=== PATIENT | female | born 1935 | race Caucasian/White ===

== ENCOUNTER 2018-10-09 12:36 | Inpatient (IN) | payer MEDICARE, OTHER ==
[~2018-10-09] VITALS: Ht 152.4 cm; Wt 56.7 kg
[~2018-10-09 12:36] MED LIST: ACET325 PO; ALBU90OI6 INH; AMOCLA875 PO; ASPI325 PO; ASPI81CH PO; AZIT250 PO; BUDE6HFA INH; BUDE6HFA PO; BUPR150ER PO; CILO50 PO; CILOSTAZOL PO; CLOP75 PO; Calcium 600-D1 EACH PO; GUAI600T33 PO; LEVSOD75 PO; LEVSOD88 PO; LISI10 PO; MULVITMIND PO; NAPR250 PO; NIAC500 PO; OMEPRAZOLE MAGN20 MG PO; PRED10 PO; PRESSER VISION; SERT100 PO; SIMV40 PO; TIOT18 IH; TUDORZA PRESS400 MCG PO
[2018-10-09 13:08] LABS: BASOPHILS ABSOLUTE AUTO 0.09 K/mm3 (0.00-0.23); BASOPHILS PERCENT AUTO 1 % (0-2); EOSINOPHILS PERCENT AUTO 3 % (0-6); Hematocrit 45.4 % (33.0-51.0); Hemoglobin 14.3 g/dL (11.5-16.0); IMMATURE GRAN ABSOLUTE AUTO 0.11 K/mm3 (0.00-0.10); IMMATURE GRAN PERCENT AUTO 2 % (0-1); LYMPHOCYTES ABSOLUTE AUTO 2.26 K/mm3 (0.84-5.20); LYMPHOCYTES PERCENT AUTO 30 % (21-46); MONOCYTES ABSOLUTE AUTO 0.56 K/mm3 (0.16-1.47); MONOCYTES PERCENT AUTO 7 % (4-13); Mean Corpuscular HGB 29.4 pg (26.0-34.0); Mean Corpuscular HGB Conc 31.5 g/dL (31.5-36.5); Mean Corpuscular Volume 93 fL (80-100); Mean Platelet Volume 10.3 fL (9.1-12.4); NEUTROPHILS ABSOLUTE AUTO 4.33 K/mm3 (1.96-9.15); NEUTROPHILS PERCENT AUTO 57 % (41-73); Platelet Count 162 K/mm3 (150-400); RDW Coefficient Variation 13.6 % (11.7-14.2); RDW Standard Deviation 46.7 fL (35.1-46.3); Red Blood Cell Count 4.86 M/mm3 (3.80-5.20); White Blood Cell Count 7.55 K/mm3 (4.00-11.30)
[2018-10-09 13:32] LABS: Alanine Aminotransfer (ALT/SGP 41 U/L (12-78); Albumin, Blood 4.3 g/dL (3.4-5.0); Albumin/Globulin Ratio 1.4 (0.8-1.8); Alk Phos 77 U/L (50-136); Anion Gap 10 mmol/L (6-16); Aspartate Aminotrans (AST/SGOT 44 U/L (12-37); Bilirubin, Total 0.6 mg/dL (0.1-1.0); Blood Urea Nitrogen 13 mg/dL (8-24); Bun/Creatinine Ratio 18.1 (12.0-20.0); CO2, Blood 26 mmol/L (21-32); Chloride, Blood 107 mmol/L (98-108); Creatinine, Blood 0.72 mg/dL (0.40-1.00); Glomerular Filtration Rate >60 (60-); Glucose, Blood 108 mg/dL (70-99); Potassium, Blood 3.7 mmol/L (3.5-5.5); Sodium, Blood 143 mmol/L (136-145); Total Protein, Blood 7.3 g/dL (6.4-8.2)
[2018-10-09] MEDS ORDERED: ATOR40TA PO (13:44)
[2018-10-09 14:34] LABS: Source, Urine Clean Catch
[2018-10-09 14:48] LABS: Appearance, Urine Clear (Clear); Bilirubin, Urine Neg (Neg); Blood, Urine 1+ (Neg); Color, Urine Yellow (P-Yellow); Glucose Qualitative, Urine Neg (Neg); Ketones, Urine Neg (Neg); Leukocyte Esterase, Urine Neg (Neg); Nitrite, Urine Neg (Neg); Protein, Urine Neg (Neg); Urobilinogen, Urine NORM (Normal)
[2018-10-09 15:01] LABS: Squamous Epithelial Cells Not Seen /hpf (Few); Transitional Epithelial Cells Rare /hpf (0-Rare); White Blood Cells, Urine 0-2 /hpf (0-5)
[2018-10-09 15:02] LABS: Bacteria Few /hpf
--- NOTE | 2018-10-09 16:12 | NUR ---
INTO SDS VIA [employer]. PT REPORTS ABDOMINAL PAIN 02/03. HISTORY AND ALLERGIES REVIEWED. NPO STATUS CONFIRMED. LUNGS TIGHT T/O WITH SCATTERED EXPIRATORY WHEEZES. SATS 92% ON RA. PT REPORTS HISTORY OF COPD AND 02 AT [facility]. DR. PARKER MADE AWARE OF ADVENTICIOUS LUNG SOUNDS-DUO NEB GIVEN.
--- NOTE | 2018-10-09 19:00 | NUR ---
PT TRANSFERRED TO ROOM ON BED, A/O BUT DROWSY. WITH PT. POST OP VS COMMENCED.
--- NOTE | 2018-10-09 19:00 | NUR ---
pt arrived to room 230 from pacu s/p small bowel resection oriented to room layout
[2018-10-10 04:34] LABS: BASOPHILS ABSOLUTE AUTO 0.02 K/mm3 (0.00-0.23); BASOPHILS PERCENT AUTO 0 % (0-2); EOSINOPHILS PERCENT AUTO 0 % (0-6); Hematocrit 40.3 % (33.0-51.0); Hemoglobin 12.6 g/dL (11.5-16.0); IMMATURE GRAN ABSOLUTE AUTO 0.04 K/mm3 (0.00-0.10); IMMATURE GRAN PERCENT AUTO 0 % (0-1); LYMPHOCYTES ABSOLUTE AUTO 0.41 K/mm3 (0.84-5.20); LYMPHOCYTES PERCENT AUTO 4 % (21-46); MONOCYTES ABSOLUTE AUTO 0.92 K/mm3 (0.16-1.47); MONOCYTES PERCENT AUTO 9 % (4-13); Mean Corpuscular HGB 29.6 pg (26.0-34.0); Mean Corpuscular HGB Conc 31.3 g/dL (31.5-36.5); Mean Corpuscular Volume 95 fL (80-100); Mean Platelet Volume 10.6 fL (9.1-12.4); NEUTROPHILS ABSOLUTE AUTO 9.18 K/mm3 (1.96-9.15); NEUTROPHILS PERCENT AUTO 87 % (41-73); Platelet Count 122 K/mm3 (150-400); RDW Coefficient Variation 13.8 % (11.7-14.2); RDW Standard Deviation 48.2 fL (35.1-46.3); Red Blood Cell Count 4.25 M/mm3 (3.80-5.20); White Blood Cell Count 10.57 K/mm3 (4.00-11.30)
--- NOTE | 2018-10-10 04:38 | NUR ---
shift summary: vss, no acute changes, pt remained a/o x 4, pleasant/cooperative. bowel tones hypoactive, no flatus. pt requested analgesia x 2, provided per mar with control of pain from 03/06 down to 3-11/04. pt's stayed in room with pt. pt tolerated minimal ice chips per orders with no n/v. lai catheter remained patent and draining clear yellow urine. midline incision c/d/i with no shadowing on surgical dressing. pt appears to be sleeping upon nurse rounding periodically t/o shift.
[2018-10-10 04:52] LABS: Alanine Aminotransfer (ALT/SGP 34 U/L (12-78); Albumin, Blood 3.2 g/dL (3.4-5.0); Albumin/Globulin Ratio 1.3 (0.8-1.8); Alk Phos 55 U/L (50-136); Anion Gap 6 mmol/L (6-16); Aspartate Aminotrans (AST/SGOT 49 U/L (12-37); Bilirubin, Total 0.4 mg/dL (0.1-1.0); Blood Urea Nitrogen 19 mg/dL (8-24); Bun/Creatinine Ratio 21.4 (12.0-20.0); CO2, Blood 29 mmol/L (21-32); Calcium, Blood 8.5 mg/dL (8.5-10.1); Chloride, Blood 106 mmol/L (98-108); Creatinine, Blood 0.89 mg/dL (0.40-1.00); Globulin, Blood 2.4 g/dL (2.2-4.0); Glomerular Filtration Rate >60 (60-); Glucose, Blood 115 mg/dL (70-99); Magnesium, Blood 1.8 mg/dL (1.6-2.4); Potassium, Blood 4.5 mmol/L (3.5-5.5); Sodium, Blood 141 mmol/L (136-145); Total Protein, Blood 5.6 g/dL (6.4-8.2)
--- NOTE | 2018-10-10 15:46 | NUR ---
SHIFT SUMMARY PT POD 1 SMALL BOWEL RESECTION. MIDLINE INCISION CLEAN AND DRY. PAIN MANAGED WITH 50 FENTANYL Q2-3, TOLERATING WELL. UP TO CHAIR AND BATHROOM SBA. TOLERATING ICE CHIPS. LASIX 40MG GIVEN THIS AM, VOIDING WELL-DECREASED WORK OF BREATHING AND FEW CRACKLES IN BASES SINCE ADMINISTRATION OF LASIX.
--- NOTE | 2018-10-10 16:12 | NUR ---
THIS RN RECENTLY GIVEN REPORT AND IS ASSUMING CARE OF PT.
--- NOTE | 2018-10-10 19:34 | NUR ---
IVF CLARIFIED WITH DR IRENE RECENTLY, DISCUSSED WITH VANESSA OSBORNE.
--- NOTE | 2018-10-11 07:20 | NUR ---
SUMMARY: NO ACUTE CHANGE THIS SHIFT. PT HAS SLEPT WELL, UP TO VOID AT BEDSIDE COMMODE, SBA. SURGICAL SITE WNL, PT HAS DENIED NEED FOR PAIN MEDS. PT CONTINUES TO BE SOB ON EXERTION, LUNG SOUNDS HAVE BEEN DIMINISHED OR WHEEZY TONIGHT, PT GIVEN BREATHING TX X1. 2L O2. NO SOB AT REST. VSS, A/O. PT AT BEDSIDE.
--- NOTE | 2018-10-11 18:27 | NUR ---
SHIFT SUMMARY PT POD 2 SMALL BOWEL RESECTION. MIDLINE INCISION C/D/I. HAS DENIED PAIN, MEDICATED ONCE WITH TORADOL FOR HEADACHE. AMBULATED IN HALLWAY X'S 3, DENIES PASSING FLATUS. DENIES N/V. IVF RUNNING PER EMAR.
[2018-10-12 04:45] LABS: BASOPHILS ABSOLUTE AUTO 0.03 K/mm3 (0.00-0.23); BASOPHILS PERCENT AUTO 1 % (0-2); EOSINOPHILS ABSOLUTE AUTO 0.08 K/mm3 (0.00-0.68); EOSINOPHILS PERCENT AUTO 2 % (0-6); Hematocrit 29.6 % (33.0-51.0); Hemoglobin 8.9 g/dL (11.5-16.0); IMMATURE GRAN ABSOLUTE AUTO 0.02 K/mm3 (0.00-0.10); IMMATURE GRAN PERCENT AUTO 0 % (0-1); LYMPHOCYTES ABSOLUTE AUTO 0.62 K/mm3 (0.84-5.20); LYMPHOCYTES PERCENT AUTO 13 % (21-46); MONOCYTES ABSOLUTE AUTO 0.36 K/mm3 (0.16-1.47); MONOCYTES PERCENT AUTO 8 % (4-13); Mean Corpuscular HGB 28.8 pg (26.0-34.0); Mean Corpuscular HGB Conc 30.1 g/dL (31.5-36.5); Mean Corpuscular Volume 96 fL (80-100); Mean Platelet Volume 10.4 fL (9.1-12.4); NEUTROPHILS ABSOLUTE AUTO 3.68 K/mm3 (1.96-9.15); NEUTROPHILS PERCENT AUTO 77 % (41-73); Platelet Count 95 K/mm3 (150-400); RDW Coefficient Variation 13.9 % (11.7-14.2); Red Blood Cell Count 3.09 M/mm3 (3.80-5.20); White Blood Cell Count 4.79 K/mm3 (4.00-11.30)
[2018-10-12 05:07] LABS: Magnesium, Blood 2.1 mg/dL (1.6-2.4)
[2018-10-12 05:08] LABS: Alanine Aminotransfer (ALT/SGP 57 U/L (12-78); Albumin, Blood 2.8 g/dL (3.4-5.0); Alk Phos 43 U/L (50-136); Anion Gap 7 mmol/L (6-16); Aspartate Aminotrans (AST/SGOT 58 U/L (12-37); Bilirubin, Total 0.7 mg/dL (0.1-1.0); Blood Urea Nitrogen 27 mg/dL (8-24); Bun/Creatinine Ratio 34.8 (12.0-20.0); CO2, Blood 27 mmol/L (21-32); Calcium, Blood 8.1 mg/dL (8.5-10.1); Chloride, Blood 111 mmol/L (98-108); Creatinine, Blood 0.78 mg/dL (0.40-1.00); Globulin, Blood 2.7 g/dL (2.2-4.0); Glomerular Filtration Rate >60 (60-); Glucose, Blood 78 mg/dL (70-99); Phosphorus, Blood 2.4 mg/dL (2.5-4.9); Potassium, Blood 3.8 mmol/L (3.5-5.5); Sodium, Blood 145 mmol/L (136-145); Total Protein, Blood 5.5 g/dL (6.4-8.2)
--- NOTE | 2018-10-12 07:15 | NUR ---
REPORT FROM KEON Hernandez RN. ASSUMED PT CARE.
--- NOTE | 2018-10-12 07:37 | NUR ---
ASSESSMENT CHARTED. PT ALERT AND ORIENTED. DENIES PAIN, DENIES NAUSEA. FAMILY AT BEDSIDE. PT STILL NPO. PT HAS BOWEL SOUNDS AND PASSING GAS. WILL DISCUSS DIET ADVANCEMENT WITH PROVIDERS.
--- NOTE | 2018-10-12 07:54 | NUR ---
SHIFT SUMMARY PT A&O X4 T/O SHIFT. POD#3 SBO RESECTION; ABD DRESSING CDI T/O SHIFT; ABD SOFT BT X4; PT DENIES NAUESA T/O SHIFT. PT DENIED NEED FOR PAIN MEDICATION T/O SHIFT RATING PAIN AT 2-310. PT PASSING FLATUS PER REPORT AND CORPORATION LAWYER. NPO PER ORDER; ORAL CARE SUPPLIES IN ROOM. PT UP TO BSC. 2L O2 VIA NC; DENIES SOB; TX PER RT. SLIGHT EXP WHEEZE NOTED BILAT UPPER LUNGS. SCD'S TO BLE'S. AT BEDSIDE. CALL LIGHT IN REACH. REPORT GIVEN TO DAY SHIFT RN.
--- NOTE | 2018-10-12 08:50 | NUR ---
PT SITTING UP IN BED, SPOUSE AT BEDSIDE. PT DENIES NEEDS. DENIES N/V/D. AWAITING PROVIDER TO ROUND.
--- NOTE | 2018-10-12 09:30 | NUR ---
DR RUIZ TO ROOM FOR EVAL. DR RUIZ AWARE OF THIS AMS LAB WORK COMPARED TO YESTERDAY. STATES WILL RE-CHECK VALUES IN AM. PLAN TO ADVANCE DIET TO FULL LIQUID AND SEE AGAIN TOMORROW.
--- NOTE | 2018-10-12 09:49 | NUR ---
PT UP TO BSC. VOIDED. ASSISTED BACK TO BED. BED LINENS CHANGED. PT DENIES PAIN. DENIES NEEDS.
--- NOTE | 2018-10-12 11:15 | NUR ---
PT RESTING. EYES CLOSED. RESP EVEN AND NON LABORED.
--- NOTE | 2018-10-12 13:35 | NUR ---
PT ATE 70% OF LUNCH. TRAY CLEARED. DENIES PAIN. DENIES NAUSEA.
--- NOTE | 2018-10-12 14:05 | NUR ---
DR WEBB TO ROOM FOR EVAL.
--- NOTE | 2018-10-12 14:42 | NUR ---
NEW BAG IVF STARTED. PT FAMILY AT BEDSIDE. SOCRATES. PT DRINKNING PEPSI. DENIES PAIN. DENIES NAUSEA.
--- NOTE | 2018-10-12 16:55 | NUR ---
PT SITTING UP IN BED. DENIES NEEDS.
--- NOTE | 2018-10-12 18:05 | NUR ---
PT SAMANTHA FULL LIQUIDS W/O ISSUE. DENIES PAIN. DENIES NAUSEA.
--- NOTE | 2018-10-12 18:54 | NUR ---
ICE WATER PROVIDED TO PT. TRAY CLEARED. PT DENIES NEEDS.
--- NOTE | 2018-10-13 05:04 | NUR ---
POD 4 S/P RESECTION. PT VSS T/O NIGHT. DRESSINGS CDI. PAIN MGD W/TORADOL W/REP RELIEF. PT SAMANTHA FUL LIQ PO, NO C/O N/V. PT UP TO BSC W/SBA, IS VOIDING URINE W/O DIFFICULTY. PT USING CALL LIGHT FOR ASSISTANCE, WILL CONT TO MONITOR UNTIL REP GIVEN TO ONCOMING RN.
--- NOTE | 2018-10-13 17:10 | NUR ---
SUMMARY NO ACUTE CHANGES T/O SHIFT. PT AMBULATED IN KANG TWICE W/SPOUSE. PT SHOWERED. MEDICATED ONCE THIS AM FOR 5/10 ABDOMINAL PAIN. PT PASSING FLATUS. PLAN TO ADVANCE TO REGULAR DIET FOR DINNER.
--- NOTE | 2018-10-14 03:33 | NUR ---
POD 5 S/P SMALL BOWEL RESECTION. PT VSS T/O NIGHT. PT REP PAIN SAMANTHA, DECLINED NEED FOR PAIN MEDS. DRESSING CDI. PT SAMANTHA REG PO, NO C/O N/V. PT IS PASSING FLATUS, NO BM YET. PT UP OOB W/SBA, AMB IN HALLS W/ AT SIDE. PT AWOKE CONFUSED SEVERAL TIMES DURING NIGHT, REORIENTS EASILY. PT USING CALL LIGHT FOR ASSISTANCE, BED ALARM ON FOR SAFETY. PLAN POSS D/C HOME TODAY. WILL CONT TO MONITOR UNTIL REP GIVEN TO ONCOMING RN.
--- NOTE | 2018-10-14 06:22 | NUR ---
CALL PLACED TO HOSPITALIST R/T PT INCREASED CONFUSION AND URINARY FREQUENCY. NEW ORDER FOR LABS REC.
[2018-10-14 06:47] LABS: BASOPHILS ABSOLUTE AUTO 0.04 K/mm3 (0.00-0.23); BASOPHILS PERCENT AUTO 1 % (0-2); EOSINOPHILS ABSOLUTE AUTO 0.22 K/mm3 (0.00-0.68); EOSINOPHILS PERCENT AUTO 4 % (0-6); Hematocrit 32.5 % (33.0-51.0); Hemoglobin 10.1 g/dL (11.5-16.0); IMMATURE GRAN ABSOLUTE AUTO 0.04 K/mm3 (0.00-0.10); IMMATURE GRAN PERCENT AUTO 1 % (0-1); LYMPHOCYTES PERCENT AUTO 13 % (21-46); MONOCYTES ABSOLUTE AUTO 0.46 K/mm3 (0.16-1.47); MONOCYTES PERCENT AUTO 8 % (4-13); Mean Corpuscular HGB Conc 31.1 g/dL (31.5-36.5); Mean Corpuscular Volume 96 fL (80-100); Mean Platelet Volume 10.2 fL (9.1-12.4); NEUTROPHILS ABSOLUTE AUTO 4.01 K/mm3 (1.96-9.15); NEUTROPHILS PERCENT AUTO 73 % (41-73); Platelet Count 131 K/mm3 (150-400); RDW Coefficient Variation 13.5 % (11.7-14.2); RDW Standard Deviation 48.3 fL (35.1-46.3); Red Blood Cell Count 3.37 M/mm3 (3.80-5.20); White Blood Cell Count 5.47 K/mm3 (4.00-11.30)
[2018-10-14 07:06] LABS: Alanine Aminotransfer (ALT/SGP 65 U/L (12-78); Albumin, Blood 3.3 g/dL (3.4-5.0); Albumin/Globulin Ratio 1.1 (0.8-1.8); Alk Phos 55 U/L (50-136); Anion Gap 8 mmol/L (6-16); Aspartate Aminotrans (AST/SGOT 52 U/L (12-37); Bilirubin, Total 0.8 mg/dL (0.1-1.0); Blood Urea Nitrogen 18 mg/dL (8-24); Bun/Creatinine Ratio 26.4 (12.0-20.0); CO2, Blood 28 mmol/L (21-32); Calcium, Blood 8.4 mg/dL (8.5-10.1); Chloride, Blood 106 mmol/L (98-108); Creatinine, Blood 0.68 mg/dL (0.40-1.00); Globulin, Blood 3.1 g/dL (2.2-4.0); Glomerular Filtration Rate >60 (60-); Glucose, Blood 87 mg/dL (70-99); Sodium, Blood 142 mmol/L (136-145); Total Protein, Blood 6.4 g/dL (6.4-8.2)
[2018-10-14 07:49] LABS: Source, Urine Voided
[2018-10-14 07:52] LABS: Bilirubin, Urine Neg (Neg); Blood, Urine Neg (Neg); Glucose Qualitative, Urine Neg (Neg); Ketones, Urine Neg (Neg); Leukocyte Esterase, Urine Neg (Neg); Nitrite, Urine Neg (Neg); Protein, Urine Neg (Neg); Urobilinogen, Urine NORM (Normal)
[2018-10-14 08:04] LABS: Appearance, Urine Clear (Clear); Color, Urine Yellow (P-Yellow)
[2018-10-14] MEDS ORDERED: HYDR1TAB94 PO (14:02)
--- NOTE | 2018-10-14 14:24 | NUR ---
DISCHARGE PT AND FAMILY EDUCATED ON AND RECEIVED PRINTED DC INSTRUCTIONS. ALL VERB AN UNDERSTANDING. HARD RX FOR NORCO GIVEN TO PT. EDUCATED ON ALTERNATING TYLENOL AND IBUPROFEN FOR MILD PAIN. NO IV'S. ALL PERSONAL BELONGINGS GATHERED AND RETURNED TO PT. ESCORTED OUT VIA W/C.
== END 2018-10-14 14:15 | disposition home or self-care (01) | DRG 330 ==
LOC: ER 12:36 → SURS 15:43
PROVIDERS: Internal Medicine; Physician Assistant; Surgery; ADMIT Internal Medicine
PROC: 0DN80ZZ Release Small Intestine, Open Approach (ICD-10-PCS; principal; 2018-10-09 16:30)
PROC: 0DB80ZZ Excision of Small Intestine, Open Approach (ICD-10-PCS; 2018-10-09 16:30)
DX: K55.059 Acute (reversible) ischemia of intestine, part and extent unspecified (principal); J44.1 Chronic obstructive pulmonary disease with (acute) exacerbation; D62 Acute posthemorrhagic anemia; K56.601 Complete intestinal obstruction, unspecified as to cause; J44.9 Chronic obstructive pulmonary disease, unspecified; I10 Essential (primary) hypertension; E78.5 Hyperlipidemia, unspecified; I73.9 Peripheral vascular disease, unspecified
CPT/HCPCS: 36415; 71045; 74177; 80053; 81001; 81003; 83735; 84100; 85025; 88307; 93005; 93010; 94640; 94760; 96361; 96374-59; 96375; 96376; 99285-25; C9113; J0690; J1100; J1885; J1940; J2405; J3010; J7030; J7040; J7120; Q9967

== ENCOUNTER 2019-03-02 15:29 | Inpatient (IN) | payer MEDICARE, OTHER ==
[~2019-03-02] VITALS: Ht 165.1 cm; Wt 39.4 kg
[~2019-03-02 15:29] MED LIST changes: -ASPI81CH PO; +ATOR40TA PO; +Aspirin EC81 MG PO; +EUTHYROX88 MCG PO; +HYDR1TAB94 PO; -LEVSOD88 PO
[2019-03-02 16:08] LABS: Source, Urine Clean Catch
[2019-03-02 16:18] LABS: Bilirubin, Urine Neg (Neg); Blood, Urine 4+ (Neg); Glucose Qualitative, Urine Neg (Neg); Ketones, Urine Neg (Neg); Leukocyte Esterase, Urine 2+ (Neg); Nitrite, Urine Neg (Neg); Protein, Urine Neg (Neg); Specific Gravity, Urine 1.015 (1.003-1.022); Urobilinogen, Urine NORM (Normal); pH, Urine 6.5 (5.0-8.0)
[2019-03-02 16:21] LABS: BASOPHILS ABSOLUTE AUTO 0.03 K/mm3 (0.00-0.23); BASOPHILS PERCENT AUTO 0 % (0-2); EOSINOPHILS ABSOLUTE AUTO 0.13 K/mm3 (0.00-0.68); EOSINOPHILS PERCENT AUTO 2 % (0-6); Hematocrit 43.5 % (33.0-51.0); Hemoglobin 13.1 g/dL (11.5-16.0); IMMATURE GRAN ABSOLUTE AUTO 0.02 K/mm3 (0.00-0.10); IMMATURE GRAN PERCENT AUTO 0 % (0-1); LYMPHOCYTES ABSOLUTE AUTO 1.07 K/mm3 (0.84-5.20); LYMPHOCYTES PERCENT AUTO 16 % (21-46); MONOCYTES ABSOLUTE AUTO 0.38 K/mm3 (0.16-1.47); MONOCYTES PERCENT AUTO 6 % (4-13); Mean Corpuscular HGB Conc 30.1 g/dL (31.5-36.5); Mean Corpuscular Volume 90 fL (80-100); NEUTROPHILS ABSOLUTE AUTO 5.16 K/mm3 (1.96-9.15); NEUTROPHILS PERCENT AUTO 76 % (41-73); Platelet Count 129 K/mm3 (150-400); RDW Coefficient Variation 15.6 % (11.7-14.2); RDW Standard Deviation 51.6 fL (35.1-46.3); Red Blood Cell Count 4.86 M/mm3 (3.80-5.20); White Blood Cell Count 6.79 K/mm3 (4.00-11.30)
[2019-03-02 16:26] LABS: Appearance, Urine Clear (Clear); Color, Urine Yellow (P-Yellow)
[2019-03-02 16:28] LABS: Squamous Epithelial Cells Rare /hpf (Few)
[2019-03-02 16:29] LABS: Bacteria Rare /hpf
[2019-03-02 16:33] LABS: Alanine Aminotransfer (ALT/SGP 51 U/L (12-78); Albumin, Blood 4.2 g/dL (3.4-5.0); Albumin/Globulin Ratio 1.2 (0.8-1.8); Alk Phos 88 U/L (50-136); Anion Gap 6 mmol/L (6-16); Aspartate Aminotrans (AST/SGOT 51 U/L (12-37); Bilirubin, Total 0.6 mg/dL (0.1-1.0); Blood Urea Nitrogen 13 mg/dL (8-24); Bun/Creatinine Ratio 15.9 (12.0-20.0); CO2, Blood 32 mmol/L (21-32); Calcium, Blood 9.3 mg/dL (8.5-10.1); Chloride, Blood 106 mmol/L (98-108); Creatinine, Blood 0.82 mg/dL (0.40-1.00); Globulin, Blood 3.5 g/dL (2.2-4.0); Glomerular Filtration Rate >60 (60-); Glucose, Blood 90 mg/dL (70-99); Potassium, Blood 3.6 mmol/L (3.5-5.5); Sodium, Blood 144 mmol/L (136-145); Total Protein, Blood 7.7 g/dL (6.4-8.2)
[2019-03-02] MEDS ORDERED: ALBU2.5V5 INH (18:57)
[2019-03-02] MEDS ORDERED: ALBU90OI61 INH (18:57)
[2019-03-02] MEDS ORDERED: VIT1CAPS12 PO (20:35)
--- NOTE | 2019-03-02 20:40 | NUR ---
PT ADMITTED FROM ED FOR SBO AT APPROX 2023. PT A POOR HISTORIAN- ABLE TO GET ALL MEDICAL HISTORY FROM . VS WNL. DENIES PAIN AND N/V AT THIS TIME. PT SBA R/T CORDS/LINES. PT ORIENTED TO ROOM AND EDUCATED SLABBING MACHINE OPERATOR LIGHT.
[2019-03-03 04:16] LABS: Hematocrit 40.1 % (33.0-51.0); Mean Corpuscular HGB 26.7 pg (26.0-34.0); Mean Corpuscular HGB Conc 29.9 g/dL (31.5-36.5); Mean Corpuscular Volume 89 fL (80-100); Mean Platelet Volume 11.1 fL (9.1-12.4); Platelet Count 112 K/mm3 (150-400); RDW Coefficient Variation 15.5 % (11.7-14.2); Red Blood Cell Count 4.49 M/mm3 (3.80-5.20); White Blood Cell Count 6.41 K/mm3 (4.00-11.30)
[2019-03-03 04:28] LABS: International Normalized Ratio 0.99; Prothrombin Time Results 10.5 Sec (9.7-11.5)
[2019-03-03 04:34] LABS: Alanine Aminotransfer (ALT/SGP 37 U/L (12-78); Albumin, Blood 3.2 g/dL (3.4-5.0); Albumin/Globulin Ratio 1.1 (0.8-1.8); Alk Phos 68 U/L (50-136); Anion Gap 5 mmol/L (6-16); Aspartate Aminotrans (AST/SGOT 36 U/L (12-37); Bilirubin, Total 0.6 mg/dL (0.1-1.0); Blood Urea Nitrogen 11 mg/dL (8-24); Bun/Creatinine Ratio 14.6 (12.0-20.0); CO2, Blood 32 mmol/L (21-32); Calcium, Blood 8.5 mg/dL (8.5-10.1); Chloride, Blood 107 mmol/L (98-108); Creatinine, Blood 0.76 mg/dL (0.40-1.00); Globulin, Blood 2.8 g/dL (2.2-4.0); Glomerular Filtration Rate >60 (60-); Glucose, Blood 97 mg/dL (70-99); Magnesium, Blood 1.9 mg/dL (1.6-2.4); Potassium, Blood 3.5 mmol/L (3.5-5.5); Sodium, Blood 144 mmol/L (136-145)
--- NOTE | 2019-03-03 07:10 | NUR ---
pt stated she had some zofran earlier from night rn nausea at the time was mod no emesis pt has hypo bt's x4 last bm was yest no flatus spouse at bedside stated she has been eating poorly past week and started having abd pain mon night
--- NOTE | 2019-03-03 12:10 | NUR ---
dr kera perez by to see pt pt having h/a pt stated at home she drinks a pot of coffee poss withdrawl 0.5 mg iv dilaudid given
--- NOTE | 2019-03-03 17:10 | NUR ---
pt having some ice chips had some mild nausea
--- NOTE | 2019-03-03 17:50 | NUR ---
dr andrew by to see pt
--- NOTE | 2019-03-03 18:30 | NUR ---
pt sleeping pt's spouse stated he was going to go home
--- NOTE | 2019-03-04 06:11 | NUR ---
PATIENT HAS HAD AN UNEVENTFUL NIGHT. SHE HAD NO COMPLAINTS OF PAIN OR DISCOMFORT. SCD'S IN PLACE WHILE IN BED. PATIET HAS BEEN AMBULATING WITH ASSISTANCE TO THE BR. VOIDING WELL, NO BM. REMAINED WITH LAST NIGHT.
--- NOTE | 2019-03-04 18:04 | NUR ---
PT HAS BEEN STABLE THIS SHIFT. UNABLE TO WEAN FROM O2, ENCOURAGING TCDB. PT DOES WEAR 2L O2 AT BASELINE AT [facility]. PT UP WITH MIN ASSIST TO AMBULATE AND SHOWER. ADVANCED TO CLEAR LIQUIDS, SAMANTHA WELL. PT HAD LIQUID BM THIS EVENING. VOIDING WELL. CONT IV FLUIDS ORDERED. DENIES ABD PAIN. TYLENOL X1 FOR HEADACHE, EFFECTIVE. TELE WITH BBB, HR IN THE 90'S. SCD'S TO BLE. SPOUSE AT BEDSIDE T/O DAY, ATTENTIVE. USES CALL LIGHT APPROPRIATELY.
--- NOTE | 2019-03-05 07:30 | NUR ---
PT AWAKE LAYING IN BED SPOUSE AT BEDSIDE STATED SHE HAD MULTIPLE BM DURING THE NIGHT NO NAUSEA ABD SOFT AND LESS DIST WANT TO ADV HER DIET WILL CALL DR JACKSON WHEN THE OFFICE OPENS
--- NOTE | 2019-03-05 09:15 | NUR ---
MEDS GIVEN SCHED
--- NOTE | 2019-03-05 09:30 | NUR ---
dr andrew by ok to adv diet to reg from cl
--- NOTE | 2019-03-05 12:00 | NUR ---
pt mimi reg diet earlier today eating lunch dr teresa by to see pt ok to go home discharge instructions reviewed with pt and spouse
--- NOTE | 2019-03-05 12:20 | NUR ---
wc escort to car no acute changes in cond
== END 2019-03-05 12:20 | disposition home or self-care (01) | DRG 390 ==
LOC: ER 15:29 → SURS 19:36
PROVIDERS: Nurse Practitioner Acute Care; Physician Assistant; ADMIT Hospitalist
DX: K56.600 Partial intestinal obstruction, unspecified as to cause (principal); J44.9 Chronic obstructive pulmonary disease, unspecified; I10 Essential (primary) hypertension; F32.9 Major depressive disorder, single episode, unspecified; R41.0 Disorientation, unspecified; E86.9 Volume depletion, unspecified; I73.9 Peripheral vascular disease, unspecified; E78.5 Hyperlipidemia, unspecified; E89.0 Postprocedural hypothyroidism; Z99.81 Dependence on supplemental oxygen; Z87.891 Personal history of nicotine dependence; Z79.82 Long term (current) use of aspirin; Z79.899 Other long term (current) drug therapy; Z88.6 Allergy status to analgesic agent; Z88.5 Allergy status to narcotic agent; Z88.8 Allergy status to other drugs, medicaments and biological substances
CPT/HCPCS: 36415; 74018; 74177; 80053; 81001; 83690; 83735; 85025; 85027; 85610; 87086; 94640; 94664; 94760; 94762; 96374-59; 99285-25; A9270; C9113; J1170; J2405; J7030; Q9967

== ENCOUNTER 2019-08-18 12:37 | Inpatient (IN) | payer MEDICARE, OTHER ==
[~2019-08-18] VITALS: Ht 165.1 cm; Wt 51.1 kg
[~2019-08-18 12:37] MED LIST changes: +ALBU2.5V5 INH; +ALBU90OI61 INH; +VIT1CAPS12 PO
[2019-08-18 13:22] LABS: BASOPHILS ABSOLUTE AUTO 0.04 K/mm3 (0.00-0.23); BASOPHILS PERCENT AUTO 1 % (0-2); EOSINOPHILS ABSOLUTE AUTO 0.19 K/mm3 (0.00-0.68); EOSINOPHILS PERCENT AUTO 3 % (0-6); Hematocrit 42.6 % (33.0-51.0); Hemoglobin 13.2 g/dL (11.5-16.0); IMMATURE GRAN ABSOLUTE AUTO 0.01 K/mm3 (0.00-0.10); IMMATURE GRAN PERCENT AUTO 0 % (0-1); LYMPHOCYTES ABSOLUTE AUTO 1.49 K/mm3 (0.84-5.20); LYMPHOCYTES PERCENT AUTO 27 % (21-46); MONOCYTES ABSOLUTE AUTO 0.41 K/mm3 (0.16-1.47); MONOCYTES PERCENT AUTO 7 % (4-13); Mean Corpuscular HGB 28.5 pg (26.0-34.0); Mean Corpuscular Volume 92 fL (80-100); Mean Platelet Volume 10.7 fL (9.1-12.4); NEUTROPHILS PERCENT AUTO 61 % (41-73); Platelet Count 123 K/mm3 (150-400); RDW Coefficient Variation 13.9 % (11.7-14.2); RDW Standard Deviation 47.1 fL (35.1-46.3); Red Blood Cell Count 4.63 M/mm3 (3.80-5.20); White Blood Cell Count 5.54 K/mm3 (4.00-11.30)
[2019-08-18 13:40] LABS: Alanine Aminotransfer (ALT/SGP 37 U/L (12-78); Albumin, Blood 4.2 g/dL (3.4-5.0); Albumin/Globulin Ratio 1.3 (0.8-1.8); Alk Phos 82 U/L (50-136); Anion Gap 7 mmol/L (6-16); Aspartate Aminotrans (AST/SGOT 38 U/L (12-37); Bilirubin, Total 0.4 mg/dL (0.1-1.0); Blood Urea Nitrogen 20 mg/dL (8-24); Bun/Creatinine Ratio 25.5 (12.0-20.0); CO2, Blood 29 mmol/L (21-32); Calcium, Blood 9.1 mg/dL (8.5-10.1); Chloride, Blood 105 mmol/L (98-108); Creatinine, Blood 0.79 mg/dL (0.40-1.00); Globulin, Blood 3.2 g/dL (2.2-4.0); Glomerular Filtration Rate >60 (60-); Glucose, Blood 85 mg/dL (70-99); Sodium, Blood 141 mmol/L (136-145); Total Protein, Blood 7.4 g/dL (6.4-8.2)
[2019-08-18 13:45] LABS: Source, Urine Clean Catch
[2019-08-18 13:50] LABS: Bilirubin, Urine Neg (Neg); Blood, Urine 5+ (Neg); Glucose Qualitative, Urine Neg (Neg); Ketones, Urine Neg (Neg); Leukocyte Esterase, Urine 1+ (Neg); Nitrite, Urine Neg (Neg); Protein, Urine Neg (Neg); Urobilinogen, Urine NORM (Normal)
[2019-08-18 13:56] LABS: Color, Urine Yellow (P-Yellow)
[2019-08-18 13:57] LABS: Appearance, Urine Hazy (Clear)
[2019-08-18 14:01] LABS: Red Blood Cells, Urine 25-50 /hpf (0-2); Squamous Epithelial Cells Few /hpf (Few)
[2019-08-18 14:02] LABS: Bacteria Mod /hpf
[2019-08-19 04:54] LABS: BASOPHILS ABSOLUTE AUTO 0.03 K/mm3 (0.00-0.23); BASOPHILS PERCENT AUTO 1 % (0-2); EOSINOPHILS ABSOLUTE AUTO 0.17 K/mm3 (0.00-0.68); EOSINOPHILS PERCENT AUTO 3 % (0-6); Hematocrit 38.3 % (33.0-51.0); Hemoglobin 11.4 g/dL (11.5-16.0); IMMATURE GRAN ABSOLUTE AUTO 0.01 K/mm3 (0.00-0.10); IMMATURE GRAN PERCENT AUTO 0 % (0-1); LYMPHOCYTES ABSOLUTE AUTO 0.92 K/mm3 (0.84-5.20); LYMPHOCYTES PERCENT AUTO 16 % (21-46); MONOCYTES ABSOLUTE AUTO 0.45 K/mm3 (0.16-1.47); MONOCYTES PERCENT AUTO 8 % (4-13); Mean Corpuscular HGB 27.7 pg (26.0-34.0); Mean Corpuscular HGB Conc 29.8 g/dL (31.5-36.5); Mean Corpuscular Volume 93 fL (80-100); Mean Platelet Volume 10.8 fL (9.1-12.4); NEUTROPHILS ABSOLUTE AUTO 4.34 K/mm3 (1.96-9.15); NEUTROPHILS PERCENT AUTO 73 % (41-73); Platelet Count 100 K/mm3 (150-400); RDW Coefficient Variation 13.9 % (11.7-14.2); RDW Standard Deviation 47.3 fL (35.1-46.3); Red Blood Cell Count 4.12 M/mm3 (3.80-5.20); White Blood Cell Count 5.92 K/mm3 (4.00-11.30)
[2019-08-19 05:22] LABS: Alanine Aminotransfer (ALT/SGP 34 U/L (12-78); Albumin, Blood 3.2 g/dL (3.4-5.0); Albumin/Globulin Ratio 1.2 (0.8-1.8); Alk Phos 63 U/L (50-136); Anion Gap 2 mmol/L (6-16); Aspartate Aminotrans (AST/SGOT 32 U/L (12-37); Bilirubin, Total 0.4 mg/dL (0.1-1.0); Blood Urea Nitrogen 16 mg/dL (8-24); Bun/Creatinine Ratio 20.5 (12.0-20.0); CO2, Blood 30 mmol/L (21-32); Calcium, Blood 8.5 mg/dL (8.5-10.1); Chloride, Blood 110 mmol/L (98-108); Creatinine, Blood 0.78 mg/dL (0.40-1.00); Globulin, Blood 2.7 g/dL (2.2-4.0); Glomerular Filtration Rate >60 (60-); Glucose, Blood 79 mg/dL (70-99); Potassium, Blood 4.2 mmol/L (3.5-5.5); Sodium, Blood 142 mmol/L (136-145); Total Protein, Blood 5.9 g/dL (6.4-8.2)
[2019-08-20 04:58] LABS: Anion Gap 4 mmol/L (6-16); Blood Urea Nitrogen 19 mg/dL (8-24); Bun/Creatinine Ratio 25.8 (12.0-20.0); CO2, Blood 29 mmol/L (21-32); Calcium, Blood 8.5 mg/dL (8.5-10.1); Chloride, Blood 110 mmol/L (98-108); Creatinine, Blood 0.74 mg/dL (0.40-1.00); Glomerular Filtration Rate >60 (60-); Glucose, Blood 106 mg/dL (70-99); Phosphorus, Blood 3.5 mg/dL (2.5-4.9); Sodium, Blood 143 mmol/L (136-145); Triglycerides 140 mg/dL (30-160)
[2019-08-20 08:46] LABS: Free Thyroxine 0.67 ng/dL (0.70-1.60)
[2019-08-20 08:48] LABS: Thyroid Stimulating Hormone 2.75 uIU/mL (0.360-4.800)
== END 2019-08-20 16:45 | disposition home or self-care (01) | DRG 390 ==
LOC: ER 12:37 → SURS 15:17
PROVIDERS: Internal Medicine Endocrinology, Diabetes & Metabolism; Physician Assistant; ADMIT Internal Medicine
DX: K56.600 Partial intestinal obstruction, unspecified as to cause (principal); E03.9 Hypothyroidism, unspecified; J44.9 Chronic obstructive pulmonary disease, unspecified; I25.10 Atherosclerotic heart disease of native coronary artery without angina pectoris; E78.5 Hyperlipidemia, unspecified; N18.3 Chronic kidney disease, stage 3 (moderate); I12.9 Hypertensive chronic kidney disease with stage 1 through stage 4 chronic kidney disease, or unspecified chronic kidney disease; M81.0 Age-related osteoporosis without current pathological fracture; F32.9 Major depressive disorder, single episode, unspecified; I73.9 Peripheral vascular disease, unspecified; Z87.891 Personal history of nicotine dependence; Z79.82 Long term (current) use of aspirin; Z79.899 Other long term (current) drug therapy
CPT/HCPCS: 36415; 71045; 74177; 74250; 80048; 80053; 81001; 82947; 83690; 83735; 84100; 84439; 84443; 84478; 85025; 87086; 94640; 94760; 96374-59; 96375; 99285-25; J0610; J1170; J1885; J2405; J3475; J7030; J7131; Q9967

== ENCOUNTER 2019-10-16 12:04 | Inpatient (IN) | payer MEDICARE, OTHER ==
[~2019-10-16] VITALS: Ht 157.5 cm; Wt 51.7 kg
[2019-10-16 12:46] LABS: BASOPHILS ABSOLUTE AUTO 0.03 K/mm3 (0.00-0.23); BASOPHILS PERCENT AUTO 1 % (0-2); EOSINOPHILS ABSOLUTE AUTO 0.11 K/mm3 (0.00-0.68); EOSINOPHILS PERCENT AUTO 2 % (0-6); Hematocrit 41.4 % (33.0-51.0); IMMATURE GRAN ABSOLUTE AUTO 0.01 K/mm3 (0.00-0.10); IMMATURE GRAN PERCENT AUTO 0 % (0-1); LYMPHOCYTES ABSOLUTE AUTO 1.06 K/mm3 (0.84-5.20); LYMPHOCYTES PERCENT AUTO 19 % (21-46); MONOCYTES ABSOLUTE AUTO 0.44 K/mm3 (0.16-1.47); MONOCYTES PERCENT AUTO 8 % (4-13); Mean Corpuscular HGB 28.8 pg (26.0-34.0); Mean Corpuscular HGB Conc 31.4 g/dL (31.5-36.5); Mean Corpuscular Volume 92 fL (80-100); Mean Platelet Volume 11.1 fL (9.1-12.4); NEUTROPHILS ABSOLUTE AUTO 3.85 K/mm3 (1.96-9.15); NEUTROPHILS PERCENT AUTO 70 % (41-73); Platelet Count 103 K/mm3 (150-400); RDW Coefficient Variation 13.8 % (11.7-14.2); RDW Standard Deviation 46.8 fL (35.1-46.3); Red Blood Cell Count 4.52 M/mm3 (3.80-5.20)
[2019-10-16 13:01] LABS: Albumin, Blood 3.9 g/dL (3.4-5.0); Albumin/Globulin Ratio 1.3 (0.8-1.8); Bilirubin, Total 0.4 mg/dL (0.1-1.0); Bun/Creatinine Ratio 18.5 (12.0-20.0); Calcium, Blood 9.2 mg/dL (8.5-10.1); Creatinine, Blood 0.98 mg/dL (0.40-1.00); Globulin, Blood 3.1 g/dL (2.2-4.0); Potassium, Blood 3.9 mmol/L (3.5-5.5)
[2019-10-16] MEDS ORDERED: Symbicort 16010.2 GM INH (15:34)
--- NOTE | 2019-10-16 18:12 | NUR ---
ADMISSION: REPORT RECEIVED FROM ED RN. PT TO UNIT AT ABOUT 1550. UPON ASSESSMENT PT IS IN NO VISABLE DISTRESS, A/O, VSS. DENIES PAIN OR NAUSEA. NGT HOOKED TO LIS. DR. STUART IN ROOM TO SEE PT. FLU SHOOT GIVEN AND FLUIDS STARTED. WILL CTM
[2019-10-17 05:29] LABS: BASOPHILS ABSOLUTE AUTO 0.03 K/mm3 (0.00-0.23); BASOPHILS PERCENT AUTO 1 % (0-2); EOSINOPHILS PERCENT AUTO 2 % (0-6); Hematocrit 41.3 % (33.0-51.0); Hemoglobin 12.7 g/dL (11.5-16.0); IMMATURE GRAN ABSOLUTE AUTO 0.02 K/mm3 (0.00-0.10); IMMATURE GRAN PERCENT AUTO 0 % (0-1); LYMPHOCYTES ABSOLUTE AUTO 0.68 K/mm3 (0.84-5.20); LYMPHOCYTES PERCENT AUTO 14 % (21-46); MONOCYTES ABSOLUTE AUTO 0.45 K/mm3 (0.16-1.47); MONOCYTES PERCENT AUTO 9 % (4-13); Mean Corpuscular HGB 28.9 pg (26.0-34.0); Mean Corpuscular HGB Conc 30.8 g/dL (31.5-36.5); Mean Corpuscular Volume 94 fL (80-100); NEUTROPHILS ABSOLUTE AUTO 3.59 K/mm3 (1.96-9.15); NEUTROPHILS PERCENT AUTO 74 % (41-73); Platelet Count 91 K/mm3 (150-400); RDW Coefficient Variation 13.8 % (11.7-14.2); RDW Standard Deviation 47.9 fL (35.1-46.3); White Blood Cell Count 4.87 K/mm3 (4.00-11.30)
[2019-10-17 05:47] LABS: Alanine Aminotransfer (ALT/SGP 28 U/L (12-78); Albumin, Blood 3.3 g/dL (3.4-5.0); Albumin/Globulin Ratio 1.2 (0.8-1.8); Alk Phos 66 U/L (50-136); Anion Gap 2 mmol/L (6-16); Aspartate Aminotrans (AST/SGOT 34 U/L (12-37); Bilirubin, Total 0.5 mg/dL (0.1-1.0); Blood Urea Nitrogen 13 mg/dL (8-24); Bun/Creatinine Ratio 17.9 (12.0-20.0); CO2, Blood 30 mmol/L (21-32); Calcium, Blood 8.4 mg/dL (8.5-10.1); Chloride, Blood 110 mmol/L (98-108); Creatinine, Blood 0.73 mg/dL (0.40-1.00); Globulin, Blood 2.8 g/dL (2.2-4.0); Glomerular Filtration Rate >60 (60-); Glucose, Blood 89 mg/dL (70-99); Sodium, Blood 142 mmol/L (136-145); Total Protein, Blood 6.1 g/dL (6.4-8.2)
--- NOTE | 2019-10-17 06:30 | NUR ---
SHIFT SUMMARY CALLED TO CHECK ON HER. WILL CALL BACK LATER TODAY TO SPEAK TO HER. HAS HAD A LARGE BM, PASSED GOOD FLATUS. HAS AMBULATED TO BSC WITH STANDBY ASSISTANCE. NG TUBE CONTINUES PATENCY CONNECTED TO LIWS, DRAINING CLOUDY HADDAD FLUID INTO CANISTER. C/O PAIN, WILL MEDICATE PER EMAR. SAFETY MEASURES IN PLACE. WILL GIVE HAND OFF TO ONCOMING SHIFT USING SBAR.
--- NOTE | 2019-10-17 15:02 | NUR ---
PATIENT NOTE: NG TUBE CLAMPED AT [address] STUART WANTED IT CLAMPED FOR 6 HOURS AND TO THEN TRY SUCTIONING SO SEE IF THERE WERE ANY RESIDUALS. AFTER THE 6 HOURS HAD PASSED, THE NURSE AND I PUT HER ON CONTINUOUS AND INTERMITTENT SUCTIONING WITHOUT RESIDUALS. DR. STUART APPROVED OF THE NG TUBE BEING D/C'D IF THERE WERE NO TO LITTLE RESIDUALS. PATIENT TOLERATED THE NG TUBE BEING D/C'D. WILL CONTINUE TO MONITOR PATIENT.
--- NOTE | 2019-10-17 18:47 | NUR ---
BAR MACHINE OPERATOR PRODUCTION DOCUMENTATION THIS RN HAS REVIEWED AND AGREES WITH DOCUMENTATION BY GERHARD CHAPMAN STUDENT NURSE.
--- NOTE | 2019-10-17 18:56 | NUR ---
SHIFT SUMMARY: PATIENT HAD HER NG TUBE D/C'D TODAY BY DR. STUART (VIEW PRIOR NOTES). SHE TOLERATED THAT WELL. SHE DID HAVE A HEADACHE THIS MORNING BUT AFTER GIVING HER PAIN MEDICATION PER EMR ORDER SHE HASN'T COMPLAINED OF IT SINCE. SHE HAS BEEN ALERT AND ORIENTED X3. SOMETIMES SHE FORGETS WHAT HOSPITAL SHE IS AT. SHE IS PLEASANT AND WILL USE THE CALL LIGHT IF NEEDED. SHE HAS BEEN ABLE TO GET UP TO USE THE COMMODE WITH ONE PERSON ASSIST. SHE HAS BEEN ABLE TO PASS FLATUS AND URINATE WITHOUT COMPLICATIONS. SHE TALKS TO HER ON THE PHONE FREQUENTLY DURING THE DAY. WILL CONTINUE TO MONITOR PATIENT UNTIL NEXT RN COMES ON SHIFT.
--- NOTE | 2019-10-18 07:03 | NUR ---
SUMMARY PT HAS VOIDING AND HAS HAD STOOLS.NO C/O NAUSEA.
--- NOTE | 2019-10-18 16:40 | NUR ---
SHIFT SUMMARY PT BEEN TOLERATING C.L. DIET. PT VOIDING, PASSING GAS. PT BEEN ASSISTED WITH ADL'S PRN. PT HAS BEEN UP TO CHAIR. PT HAS TAB ALARM IN PLACE. DISCUSSED PT'S STATUS WITH DR IRENE AND DR HARPER.
--- NOTE | 2019-10-19 05:46 | NUR ---
SHIFT SUMMARY: SONIYA IS ALERT AND ORIENTED X 3. SHE OCCASIONALLY BECOMES CONFUSED, BUT REORIENTS EASILY. SHE IS PRONE TO WANDER SEARCHING FOR HER . BED AND/OR CHAIR ALARM ON FOR SAFETY. SHE USES THE BEDSIDE COMMODE WITHOUT DIFFICULTY. SHE IS PASSING FLATUS AND HAD A BM YESTERDAY. SHE STATES SHE IS HOPEFUL SHE WILL BE RELEASED TO GO HOME TODAY. SHE IS TOLERATING THE FULL LIQUID DIET WITHOUT DIFFICULTY. SHE TOLERATED AMBULATING WITH STANDBY ASSIST. SHE USES HER CALL LIGHT BUT OCCASIONALLY FORGETS HOW TO PROPERLY USE IT. SHE IS SITTING IN BED WITH THE BED ALARM ON AND CALL LIGHT IN REACH. WILL REPORT TO DAY SHIFT RN.
--- NOTE | 2019-10-19 14:01 | NUR ---
DR IRENE HERE RECENTLY TO SEE PT. FAMILY NOTIFIED OF STATING TO WRITE D/C ORDERS.
--- NOTE | 2019-10-19 14:46 | NUR ---
DISCHARGE: PT RECENTLY DISCHARGED. INFORMATION WENT OVER WITH PT HAS MILD DEMENTIA. PT BEEN EATING AND DRINKING, VOIDING, HAD BM. PT HAS NO IV. PT BEEN AMBULATING WITHOUT DIFF WITH WALKER. FAMILY REPORTS HAVING WALKER AT HOME.
== END 2019-10-19 14:45 | disposition home or self-care (01) | DRG 390 ==
LOC: ER 12:04 → SURS 16:18
PROVIDERS: Nurse Practitioner; ADMIT Internal Medicine
PROC: 0D9670Z Drainage of Stomach with Drainage Device, Via Natural or Artificial Opening (ICD-10-PCS; principal; 2019-10-16)
DX: K56.609 Unspecified intestinal obstruction, unspecified as to partial versus complete obstruction (principal); I25.10 Atherosclerotic heart disease of native coronary artery without angina pectoris; J44.9 Chronic obstructive pulmonary disease, unspecified; E03.9 Hypothyroidism, unspecified; E78.5 Hyperlipidemia, unspecified; D69.6 Thrombocytopenia, unspecified; I10 Essential (primary) hypertension; I73.9 Peripheral vascular disease, unspecified; Z85.3 Personal history of malignant neoplasm of breast; Z79.82 Long term (current) use of aspirin; Z79.899 Other long term (current) drug therapy; Z87.891 Personal history of nicotine dependence
CPT/HCPCS: 36415; 74176; 80053; 83690; 85025; 90686; 94640; 94760; 96361; 96374; 96375; 96376; 99285-25; A9270-GY; J2405; J3010; J7030

== ENCOUNTER 2020-04-02 11:15 | Emergency (ER) | payer MEDICARE, OTHER ==
[~2020-04-02] VITALS: Ht 165.1 cm; Wt 51.7 kg
[~2020-04-02 11:15] MED LIST changes: +Symbicort 16010.2 GM INH
[2020-04-02] MEDS ORDERED: DONEPEZIL HCL5 M2 PO (11:30)
[2020-04-02] MEDS ORDERED: CEPH500 PO (12:59)
== END 2020-04-02 13:02 | disposition home or self-care (01) ==
LOC: ER 11:15
DX: S51.811A Laceration without foreign body of right forearm, initial encounter (principal); I10 Essential (primary) hypertension; J44.9 Chronic obstructive pulmonary disease, unspecified; G30.9 Alzheimer's disease, unspecified; F02.80 Dementia in other diseases classified elsewhere, unspecified severity, without behavioral disturbance, psychotic disturbance, mood disturbance, and anxiety; Z23 Encounter for immunization; Z87.891 Personal history of nicotine dependence; Z88.5 Allergy status to narcotic agent; Z88.6 Allergy status to analgesic agent; Z88.8 Allergy status to other drugs, medicaments and biological substances; Z79.82 Long term (current) use of aspirin; Z79.899 Other long term (current) drug therapy; Z79.51 Long term (current) use of inhaled steroids; W01.0XXA Fall on same level from slipping, tripping and stumbling without subsequent striking against object, initial encounter; Y92.096 Garden or yard of other non-institutional residence as the place of occurrence of the external cause
CPT/HCPCS: 90714

== ENCOUNTER 2022-01-12 08:15 | Emergency (ER) | payer MEDICARE, OTHER ==
[~2022-01-12] VITALS: Ht 165.1 cm; Wt 49.9 kg
[~2022-01-12 08:15] MED LIST changes: +CEPH500 PO; +DONEPEZIL HCL5 M2 PO
[2022-01-12 09:16] LABS: BASOPHILS ABSOLUTE AUTO 0.02 K/mm3 (0.00-0.23); BASOPHILS PERCENT AUTO 0 % (0-2); EOSINOPHILS ABSOLUTE AUTO 0.01 K/mm3 (0.00-0.68); EOSINOPHILS PERCENT AUTO 0 % (0-6); Hematocrit 44.3 % (33.0-51.0); Hemoglobin 13.9 g/dL (11.5-16.0); IMMATURE GRAN ABSOLUTE AUTO 0.01 K/mm3 (0.00-0.10); IMMATURE GRAN PERCENT AUTO 0 % (0-1); LYMPHOCYTES ABSOLUTE AUTO 0.54 K/mm3 (0.84-5.20); LYMPHOCYTES PERCENT AUTO 11 % (21-46); MONOCYTES PERCENT AUTO 2 % (4-13); Mean Corpuscular HGB 29.3 pg (26.0-34.0); Mean Corpuscular HGB Conc 31.4 g/dL (31.5-36.5); Mean Corpuscular Volume 93 fL (80-100); Mean Platelet Volume 10.2 fL (9.1-12.4); NEUTROPHILS PERCENT AUTO 86 % (41-73); Platelet Count 128 K/mm3 (150-400); RDW Coefficient Variation 13.9 % (11.7-14.2); RDW Standard Deviation 48.7 fL (35.1-46.3); Red Blood Cell Count 4.75 M/mm3 (3.80-5.20); White Blood Cell Count 4.78 K/mm3 (4.00-11.30)
[2022-01-12 09:32] LABS: Albumin, Blood 4.1 g/dL (3.4-5.0); Albumin/Globulin Ratio 1.2 (0.8-1.8); Bilirubin, Total 0.5 mg/dL (0.1-1.0); Bun/Creatinine Ratio 23.8 (12.0-20.0); Calcium, Blood 9.4 mg/dL (8.5-10.1); Creatinine, Blood 0.8 mg/dL (0.40-1.00); Globulin, Blood 3.4 g/dL (2.2-4.0); Potassium, Blood 4.8 mmol/L (3.5-5.5); Total Protein, Blood 7.5 g/dL (6.4-8.2)
[2022-01-12 09:41] LABS: Influenza A, PCR NEGATIVE (NEGATIVE); Influenza B, PCR NEGATIVE (NEGATIVE); Resp Syncytial Virus, PCR NEGATIVE (NEGATIVE); SARS-Cov-2 (COVID-19) PCR, MMC NEGATIVE (NEGATIVE)
[2022-01-12] MEDS ORDERED: MEMANTINE HCL PO (09:48)
[2022-01-12] MEDS ORDERED: FOSAMAX70 MG PO (09:50)
[2022-01-12 10:26] LABS: Source, Urine Clean Catch
[2022-01-12 10:32] LABS: Appearance, Urine Clear (Clear); Bilirubin, Urine Neg (Neg); Blood, Urine 4+ (Neg); Color, Urine Yellow (P-Yellow); Glucose Qualitative, Urine Neg (Neg); Ketones, Urine Neg (Neg); Leukocyte Esterase, Urine Neg (Neg); Nitrite, Urine Neg (Neg); Protein, Urine Neg (Neg); Urobilinogen, Urine NORM (Normal)
[2022-01-12 10:40] LABS: Bacteria Rare /hpf; Red Blood Cells, Urine 25-50 /hpf (0-2); Squamous Epithelial Cells Rare /hpf (Few)
[2022-01-12] MEDS ORDERED: NITR100CA PO (12:11)
== END 2022-01-12 12:27 | disposition home or self-care (01) ==
LOC: ER 08:15
PROVIDERS: Physician Assistant
DX: R10.9 Unspecified abdominal pain (principal); N20.0 Calculus of kidney; R51.9 Headache, unspecified; G30.9 Alzheimer's disease, unspecified; F02.80 Dementia in other diseases classified elsewhere, unspecified severity, without behavioral disturbance, psychotic disturbance, mood disturbance, and anxiety; I10 Essential (primary) hypertension; J44.9 Chronic obstructive pulmonary disease, unspecified; Z99.81 Dependence on supplemental oxygen; Z20.822 Contact with and (suspected) exposure to COVID-19; Z87.891 Personal history of nicotine dependence; Z88.6 Allergy status to analgesic agent; Z88.5 Allergy status to narcotic agent; Z88.8 Allergy status to other drugs, medicaments and biological substances; Z79.899 Other long term (current) drug therapy
CPT/HCPCS: 0241U; 36415; 74177; 80053; 81001; 83690; 84484; 85025; 93005; 93010; 99284-25; Q9967

== ENCOUNTER 2022-05-18 22:11 | Inpatient (IN) | payer MEDICARE, OTHER ==
[~2022-05-18] VITALS: Ht 165.1 cm; Wt 49.9 kg
[~2022-05-18 22:11] MED LIST changes: +FOSAMAX70 MG PO; +MEMANTINE HCL PO; +NITR100CA PO
[2022-05-18 22:59] LABS: BASOPHILS ABSOLUTE AUTO 0.04 K/mm3 (0.00-0.23); BASOPHILS PERCENT AUTO 1 % (0-2); EOSINOPHILS ABSOLUTE AUTO 0.17 K/mm3 (0.00-0.68); EOSINOPHILS PERCENT AUTO 3 % (0-6); Hematocrit 41.5 % (33.0-51.0); Hemoglobin 13.2 g/dL (11.5-16.0); IMMATURE GRAN ABSOLUTE AUTO 0.01 K/mm3 (0.00-0.10); IMMATURE GRAN PERCENT AUTO 0 % (0-1); LYMPHOCYTES ABSOLUTE AUTO 1.15 K/mm3 (0.84-5.20); LYMPHOCYTES PERCENT AUTO 20 % (21-46); MONOCYTES ABSOLUTE AUTO 0.48 K/mm3 (0.16-1.47); MONOCYTES PERCENT AUTO 8 % (4-13); Mean Corpuscular HGB 29.4 pg (26.0-34.0); Mean Corpuscular HGB Conc 31.8 g/dL (31.5-36.5); Mean Corpuscular Volume 92 fL (80-100); Mean Platelet Volume 10.6 fL (9.1-12.4); NEUTROPHILS ABSOLUTE AUTO 3.89 K/mm3 (1.96-9.15); NEUTROPHILS PERCENT AUTO 68 % (41-73); Platelet Count 107 K/mm3 (150-400); RDW Coefficient Variation 13.7 % (11.7-14.2); RDW Standard Deviation 46.3 fL (35.1-46.3); Red Blood Cell Count 4.49 M/mm3 (3.80-5.20); White Blood Cell Count 5.74 K/mm3 (4.00-11.30)
[2022-05-18 23:15] LABS: Albumin, Blood 3.8 g/dL (3.4-5.0); Albumin/Globulin Ratio 1.2 (0.8-1.8); Bilirubin, Total 0.4 mg/dL (0.1-1.0); Bun/Creatinine Ratio 21.3 (12.0-20.0); Creatinine, Blood 0.89 mg/dL (0.40-1.00); Globulin, Blood 3.1 g/dL (2.2-4.0); Potassium, Blood 3.8 mmol/L (3.5-5.5); Total Protein, Blood 6.9 g/dL (6.4-8.2)
[2022-05-18] MEDS ORDERED: Preservision S1 EACH (23:41)
[2022-05-19 00:01] LABS: Source, Urine Voided
[2022-05-19 00:21] LABS: Bilirubin, Urine Neg (Neg); Blood, Urine 5+ (Neg); Glucose Qualitative, Urine Neg (Neg); Ketones, Urine Neg (Neg); Leukocyte Esterase, Urine 2+ (Neg); Nitrite, Urine Neg (Neg); Protein, Urine 1+ (Neg); Specific Gravity, Urine 1.015 (1.003-1.022); Urobilinogen, Urine NORM (Normal); pH, Urine 6.5 (5.0-8.0)
[2022-05-19 00:25] LABS: Appearance, Urine Hazy (Clear); Color, Urine Yellow (P-Yellow)
[2022-05-19 00:29] LABS: Bacteria Few /hpf; Red Blood Cells, Urine TNTC /hpf (0-2); Squamous Epithelial Cells Rare /hpf (Few)
--- NOTE | 2022-05-19 03:00 | NUR ---
PT NEW ADMIT FROM ER WITHA SBO. ARRIVED TO THE FLOOR IN NO DISTRESS. VSS, NO N/V. AT BEDSIDE TO ASSIST WITH PT CARE AND MAKE MEDICAL DECISION. PLAN FOR PT IS TO HAVE A SURGERY CONSULT TODAY. THE PT IS CURRENTLY RESTING, IN NO DISTTRESS.
[2022-05-19] MEDS ORDERED: BREZTRI AEROS10.7 GM INH (03:01)
[2022-05-19] MEDS ORDERED: CALCIUM 600 +1 EA11 PO (03:06)
--- NOTE | 2022-05-19 06:14 | NUR ---
VSS. PT HAS SLEPT WELL SINCE ARRIVING TO THE FLOOR. HAS REMAINED NPO. DENIES ANY PAIN OR NAUSEA WHEN ASKED. SCD'S APPLIED. CALL LIGHT IN REACH, BED ALARM ON FOR SAFETY. PLAN FOR SURGERY TO CONSULT THIS AM.
[2022-05-19 09:14] LABS: Bun/Creatinine Ratio 19.8 (12.0-20.0); Calcium, Blood 8.7 mg/dL (8.5-10.1); Creatinine, Blood 0.71 mg/dL (0.40-1.00); Potassium, Blood 4.3 mmol/L (3.5-5.5)
--- NOTE | 2022-05-19 09:30 | NUR ---
PT SBA TO BATHROOM. PT WITH UNMEASURED LIQUID BM-GREENISH YELLOW IN COLOR. TOLERATING FULL LIQUID WITH NO C/O N/V AT THIS TIME. ASSISTED BACK TO BED. AT BEDSIDE.
--- NOTE | 2022-05-19 11:37 | NUR ---
DISCHARGE SUMMARY PT AxOx3 WITH OCCASIONAL CONFUSION/FORGETFULNESS. PT'S IN ROOM THIS AM. PT IS DC'ING HOME WITH TODAY. PT DENIES ABD PAIN THIS AM. PT HAD 2 BM'S SINCE ADMIT LAST NOC. PT REPORTS FEELING MUCH BETTER. PT ADVANCED TO FULL LIQUID DIET THIS AM, TOLERATED WELL. PT AND GIVEN DC INSTRUCTIONS INCLUDING DC MED LIST, FOLLOW UP APPOINTMENT NEEDS AND PATIENT EDUCATION. PT AND DENY ANY FURTHER QUESTIONS AT THIS TIME. PT SAFELY ESCORTED OUT VIA WC WITH GREENHOUSE WORKER AND .
== END 2022-05-19 11:23 | disposition home or self-care (01) | DRG 392 ==
LOC: ER 22:11 → SURS 05-19 02:44
PROVIDERS: Student in an Organized Health Care Education/Training Program; ADMIT Internal Medicine
DX: K59.00 Constipation, unspecified (principal); I10 Essential (primary) hypertension; C50.919 Malignant neoplasm of unspecified site of unspecified female breast; J44.9 Chronic obstructive pulmonary disease, unspecified; G30.9 Alzheimer's disease, unspecified; E89.0 Postprocedural hypothyroidism; F02.80 Dementia in other diseases classified elsewhere, unspecified severity, without behavioral disturbance, psychotic disturbance, mood disturbance, and anxiety; E78.00 Pure hypercholesterolemia, unspecified; I73.9 Peripheral vascular disease, unspecified; R82.90 Unspecified abnormal findings in urine; Z96.643 Presence of artificial hip joint, bilateral; Z90.710 Acquired absence of both cervix and uterus; Z88.8 Allergy status to other drugs, medicaments and biological substances; Z88.5 Allergy status to narcotic agent; Z79.899 Other long term (current) drug therapy; Z98.890 Other specified postprocedural states; Z79.82 Long term (current) use of aspirin; Z79.02 Long term (current) use of antithrombotics/antiplatelets; Z79.51 Long term (current) use of inhaled steroids; Z87.891 Personal history of nicotine dependence; Z95.828 Presence of other vascular implants and grafts; Z87.19 Personal history of other diseases of the digestive system
CPT/HCPCS: 36415; 74177; 80048; 80053; 81001; 83605; 83690; 84484; 85025; 87086; 93005; 93010; 94760; 99285-25; A9270; J7030; J7120; Q9967

== ENCOUNTER 2023-02-22 09:15 | Emergency (ER) | payer MEDICARE, OTHER ==
[~2023-02-22] VITALS: Ht 165.1 cm; Wt 46.7 kg
[~2023-02-22 09:15] MED LIST changes: +BREZTRI AEROS10.7 GM INH; +CALCIUM 600 +1 EA11 PO; +Preservision S1 EACH
[2023-02-22 10:43] LABS: Albumin, Blood 3.8 g/dL (3.4-5.0); Albumin/Globulin Ratio 1.3 (0.8-1.8); Bilirubin, Total 0.4 mg/dL (0.1-1.0); Bun/Creatinine Ratio 18.9 (12.0-20.0); Calcium, Blood 8.9 mg/dL (8.5-10.1); Creatinine, Blood 0.9 mg/dL (0.40-1.00); Globulin, Blood 2.9 g/dL (2.2-4.0); Potassium, Blood 4.1 mmol/L (3.5-5.5); Total Protein, Blood 6.7 g/dL (6.4-8.2)
[2023-02-22 10:48] LABS: BASOPHILS ABSOLUTE AUTO 0.04 K/mm3 (0.00-0.23); BASOPHILS PERCENT AUTO 1 % (0-2); EOSINOPHILS ABSOLUTE AUTO 0.07 K/mm3 (0.00-0.68); EOSINOPHILS PERCENT AUTO 2 % (0-6); Hematocrit 41.7 % (33.0-51.0); Hemoglobin 13.4 g/dL (11.5-16.0); IMMATURE GRAN ABSOLUTE AUTO 0.02 K/mm3 (0.00-0.10); IMMATURE GRAN PERCENT AUTO 1 % (0-1); LYMPHOCYTES PERCENT AUTO 19 % (21-46); MONOCYTES ABSOLUTE AUTO 0.34 K/mm3 (0.16-1.47); MONOCYTES PERCENT AUTO 8 % (4-13); Mean Corpuscular HGB 29.5 pg (26.0-34.0); Mean Corpuscular HGB Conc 32.1 g/dL (31.5-36.5); Mean Corpuscular Volume 92 fL (80-100); Mean Platelet Volume 10.8 fL (9.1-12.4); NEUTROPHILS ABSOLUTE AUTO 3.03 K/mm3 (1.96-9.15); NEUTROPHILS PERCENT AUTO 71 % (41-73); Platelet Count 89 K/mm3 (150-400); RDW Coefficient Variation 13.4 % (11.7-14.2); RDW Standard Deviation 45.8 fL (35.1-46.3); Red Blood Cell Count 4.54 M/mm3 (3.80-5.20)
[2023-02-22 12:45] VITALS: BP 132/77
== END 2023-02-22 13:52 | disposition home or self-care (01) ==
LOC: ER 09:15
PROVIDERS: Student in an Organized Health Care Education/Training Program
DX: R07.9 Chest pain, unspecified (principal); Z87.891 Personal history of nicotine dependence
CPT/HCPCS: 71046; 80053; 83690; 84484; 85025; 93005; 93010

== ENCOUNTER 2024-06-30 14:39 | Inpatient (IN) | payer MEDICARE, OTHER ==
[~2024-06-30] VITALS: Ht 165.1 cm; Wt 44.1 kg
[~2024-06-30 14:39] MED LIST changes: -EUTHYROX88 MCG PO; +LEVSOD100 PO; +MEMA10 PO; -MEMANTINE HCL PO
[2024-06-30] MEDS ORDERED: Ondansetron HCl 2 MG / ML 2ML Vial IV ONE (15:50)
[2024-06-30] MEDS ORDERED: Morphine Sulfate 4 MG/1 ML Injection IV ONE (15:50)
[2024-06-30 16:26] LABS: BASOPHILS ABSOLUTE AUTO 0.05 K/mm3 (0.00-0.23); BASOPHILS PERCENT AUTO 1 % (0-2); EOSINOPHILS PERCENT AUTO 2 % (0-6); Hematocrit 40.7 % (33.0-51.0); Hemoglobin 12.9 g/dL (11.5-16.0); IMMATURE GRAN ABSOLUTE AUTO 0.02 K/mm3 (0.00-0.10); IMMATURE GRAN PERCENT AUTO 0 % (0-1); LYMPHOCYTES PERCENT AUTO 14 % (21-46); MONOCYTES ABSOLUTE AUTO 0.35 K/mm3 (0.16-1.47); MONOCYTES PERCENT AUTO 7 % (4-13); Mean Corpuscular HGB 30.3 pg (26.0-34.0); Mean Corpuscular HGB Conc 31.7 g/dL (31.5-36.5); Mean Corpuscular Volume 96 fL (80-100); Mean Platelet Volume 10.4 fL (9.1-12.4); NEUTROPHILS ABSOLUTE AUTO 3.89 K/mm3 (1.96-9.15); NEUTROPHILS PERCENT AUTO 76 % (41-73); Platelet Count 117 K/mm3 (150-400); RDW Coefficient Variation 13.7 % (11.7-14.2); RDW Standard Deviation 48.2 fL (35.1-46.3); Red Blood Cell Count 4.26 M/mm3 (3.80-5.20); White Blood Cell Count 5.11 K/mm3 (4.00-11.30)
[2024-06-30 16:39] LABS: Albumin, Blood 3.6 g/dL (3.4-5.0); Albumin/Globulin Ratio 1.2 (0.8-1.8); Bilirubin, Total 0.2 mg/dL (0.1-1.0); Bun/Creatinine Ratio 21.9 (12.0-20.0); Calcium, Blood 9.2 mg/dL (8.5-10.1); Creatinine, Blood 0.87 mg/dL (0.40-1.00); Globulin, Blood 2.9 g/dL (2.2-4.0); Potassium, Blood 4.3 mmol/L (3.5-5.5); Total Protein, Blood 6.5 g/dL (6.4-8.2)
[2024-06-30] MEDS ORDERED: Acetaminophen 500 MG Tab PO PRN (18:25)
[2024-06-30] MEDS ORDERED: Morphine Sulfate 4 MG/1 ML Injection IV PRN (18:25)
[2024-06-30] MEDS ORDERED: Polyethylene Glycol 3350 17 gm PO PRN (18:30)
[2024-06-30] MEDS ORDERED: Ondansetron HCl 2 MG / ML 2ML Vial IV PRN (18:30)
[2024-06-30] MEDS ORDERED: NS 1,000 ML IV ONE (18:51)
[2024-06-30] MEDS ORDERED: FLU VACC TS2024-25(6MOS UP)/PF 45 MCG/0.5 ML SYRINGE IM ONE (20:00)
[2024-06-30] MEDS ORDERED: Docusate Sodium/Senna 1 Tab PO SCH (21:00)
[2024-06-30 21:04] VITALS: BP 111/58
--- NOTE | 2024-06-30 22:06 | NUR ---
ARRIVAL TO UNIT PT ARRIVED TO UNIT APROX 2044 ON A GURNEY. PT MOVED OVER TO BED WITH SLIDING SHEET. PT CONFUSED, HAS BASLINE DEMENTIA. AT BEDSIDE TO ANSWER QEUSTIONS. IS POA. PT ABLE TO WIGGLE TOES OF LLE. PULSED STRONG AND CAP REFILL WNL. PT PLACED ON 2L NC FOR NIGHT TIME, BASELINE FOR PT. PAIN MEDICATION GIVEN PER EMAR. HUSBADN STAYING AT BEDSIDE WITH PT. BED ALARM ON FOR SAFETY. VSS. NO TOHER CONCERNS AT THIS TIME, CALL LIGHT WITHIN REACH
[2024-07-01] MEDS ORDERED: Lactated Ringer's 1,000 ML IV SCH (00:25)
[2024-07-01] MEDS ORDERED: Methocarbamol 500 MG Tab PO SCH (01:00)
[2024-07-01] MEDS ORDERED: MIRALAX17 GM PO (03:34)
[2024-07-01 04:40] VITALS: BP 107/59
--- NOTE | 2024-07-01 04:47 | NUR ---
SHIFT SUMMARY PT ABLE TO REST SINCE COMING TO THE FLOOR. PAIN MANAGED PER EMAR. NPO SINCE MN FOR POSSIBLE SURGERY TODAY. PT REMAINS CONFUSED BUT THIS IS BASELINE. AT BEDSIDE FOR COMFORT. VSS. NO OTHER CONCERNS AT THIS TIME, CALL LIGHT WITHIN REACH
[2024-07-01] MEDS ORDERED: Albuterol HFA200 ACT/6.7 GM INH INH PRN (04:50)
[2024-07-01 05:02] LABS: Hematocrit 35.8 % (33.0-51.0); Hemoglobin 11.1 g/dL (11.5-16.0); Mean Corpuscular HGB 30.1 pg (26.0-34.0); Mean Corpuscular Volume 97 fL (80-100); Mean Platelet Volume 10.5 fL (9.1-12.4); Platelet Count 105 K/mm3 (150-400); RDW Standard Deviation 49.9 fL (35.1-46.3); Red Blood Cell Count 3.69 M/mm3 (3.80-5.20); White Blood Cell Count 6.64 K/mm3 (4.00-11.30)
[2024-07-01 05:23] LABS: Albumin, Blood 3.4 g/dL (3.4-5.0); Anion Gap 7 mmol/L (3-11); Blood Urea Nitrogen 24 mg/dL (8-24); Bun/Creatinine Ratio 22.9 (12.0-20.0); CO2, Blood 33 mmol/L (21-32); Chloride, Blood 111 mmol/L (98-108); Creatinine, Blood 1.05 mg/dL (0.40-1.00); Glomerular Filtration Rate 51 (60-); Glucose, Blood 108 mg/dL (70-99); Magnesium, Blood 1.9 mg/dL (1.6-2.4); Phosphorus, Blood 3.9 mg/dL (2.5-4.9); Potassium, Blood 4.5 mmol/L (3.5-5.5); Sodium, Blood 146 mmol/L (136-145)
[2024-07-01 07:12] VITALS: BP 123/74
[2024-07-01 07:14] VITALS: BP 129/66
--- NOTE | 2024-07-01 09:50 | NUR ---
"Spiritual Care | Pt./Family Request Pt. is awke in bed and displays evidence of being pleasantly confused. Spouse is at bedside and welcomes my visit. Faciltated a life review with the spouse. COnsidered matters of leoncio and belief. Listened with interest and a calming presence. Pt. continues to display a pleasant demeanor, and prayer was welcomed. Prayed with pt. Spouse verbalized gratitude for the spiritual care visit."
[2024-07-01] MEDS ORDERED: DONEPEZIL HCL10 M1 PO (10:48)
[2024-07-01] MEDS ORDERED: BREZTRI INHALER INH PRN (13:35)
[2024-07-01 14:41] VITALS: BP 122/61
--- NOTE | 2024-07-01 18:29 | NUR ---
SHIFT SUMMARY S/P L PERIPROSTHETIC FX, A/OX2 (SELF AND PERSON/FAMILY), PLEASANTLY CONFUSED BUT SHE IS NOT IMPULSIVE AND REDIRECTS EASILY. NON SURGICAL PER ORTHO CONSULTATION, WORKED WITH THERAPY TODAY AND WAS ABLE TO STAND AT THE EDGE OF THE BED FOR A BIT BUT NOT ABLE TO TAKE ANY STEPS. NO ACUTE EVENTS THIS SHIFT, CALL LIGHT IN REACH.
[2024-07-01 19:31] VITALS: BP 92/59
[2024-07-01] MEDS ORDERED: Memantine HCL 5 MG Tab PO SCH (21:00)
[2024-07-01] MEDS ORDERED: Calcium/Vit D 600 mg-400 Unit Tab PO SCH (21:00)
[2024-07-01] MEDS ORDERED: Donepezil HCl 5 MG Tab PO SCH (21:00)
--- NOTE | 2024-07-02 04:18 | NUR ---
SHIFT SUMMARY TY WAS ALERT AND ORIENTED X2 AT START OF SHIFT. PT SMILES AND DENIES PAIN WHEN ASKED. PT AT BEDSIDE MOST OF THE NIGHT. PT DOES HAVE PAIN WITH MOVEMENT. NO ACUTE EVENTS TONIGHT, NO NOTED CHANGES TO PT CONDITION.
[2024-07-02 04:49] VITALS: BP 140/70
[2024-07-02] MEDS ORDERED: Levothyroxine Sodium 0.1 MG Tab PO SCH (06:00)
[2024-07-02 07:14] LABS: Bun/Creatinine Ratio 32.8 (12.0-20.0); Calcium, Blood 9.3 mg/dL (8.5-10.1); Creatinine, Blood 0.85 mg/dL (0.40-1.00); Potassium, Blood 4.6 mmol/L (3.5-5.5)
[2024-07-02 07:15] LABS: BASOPHILS ABSOLUTE AUTO 0.02 K/mm3 (0.00-0.23); BASOPHILS PERCENT AUTO 0 % (0-2); EOSINOPHILS ABSOLUTE AUTO 0.07 K/mm3 (0.00-0.68); EOSINOPHILS PERCENT AUTO 1 % (0-6); Hematocrit 30.9 % (33.0-51.0); Hemoglobin 9.9 g/dL (11.5-16.0); IMMATURE GRAN ABSOLUTE AUTO 0.02 K/mm3 (0.00-0.10); IMMATURE GRAN PERCENT AUTO 0 % (0-1); LYMPHOCYTES ABSOLUTE AUTO 0.51 K/mm3 (0.84-5.20); LYMPHOCYTES PERCENT AUTO 9 % (21-46); MONOCYTES ABSOLUTE AUTO 0.66 K/mm3 (0.16-1.47); MONOCYTES PERCENT AUTO 12 % (4-13); Mean Corpuscular HGB 30.8 pg (26.0-34.0); Mean Corpuscular Volume 96 fL (80-100); Mean Platelet Volume 10.7 fL (9.1-12.4); NEUTROPHILS ABSOLUTE AUTO 4.45 K/mm3 (1.96-9.15); NEUTROPHILS PERCENT AUTO 78 % (41-73); Platelet Count 82 K/mm3 (150-400); RDW Coefficient Variation 13.8 % (11.7-14.2); RDW Standard Deviation 48.7 fL (35.1-46.3); Red Blood Cell Count 3.21 M/mm3 (3.80-5.20); White Blood Cell Count 5.73 K/mm3 (4.00-11.30)
[2024-07-02 07:56] VITALS: BP 125/61
[2024-07-02] MEDS ORDERED: Sertraline HCl 100 MG Tab PO SCH (09:00)
[2024-07-02] MEDS ORDERED: Aspirin 81 MG TabEC PO SCH (09:00)
[2024-07-02] MEDS ORDERED: BREZTRI INHALER INH SCH (09:00)
[2024-07-02 14:08] VITALS: BP 107/62
--- NOTE | 2024-07-02 16:32 | NUR ---
SHIFT SUMMARY PT AT BASELINE NEURO STATUS, ALERT, AND ORIENTED TO SELF, FAMILY AND PLACE. PT OFTEN FORGETFUL AT TIMES. PT ACCOMPANIED BY HER ENTIRE SHIFT WITH MULTIPLE VISITORS DURING THE DAY. PT WORKED WITH PHYSICAL THERAPY AND WAS ABLE TO TAKE SMALL STEPS WITH 2 PERSON MAX ASSIST DUE TO PAIN AND WEAKNESS. PT WAS UP IN RECLINER MOST OF THE SHIFT. PT [place] [facility] [place] BUT EVENTUALLY PURE WICK WAS PLACED AGAIN DUE TO INABILITY TO BEAR ANY WEIGHT. PT'S FAMILY REMAINS OPTIMISTIC AND HOPEFUL OF DISCHARGE TO HOME HEALTH AFTER PT REGAINS SOME STRENGTH. AT REST, PT DOES NOT COMPLAIN OF ANY PAIN IN HER L HIP. NO OTHER ISSUES NOTED.
--- NOTE | 2024-07-02 17:47 | NUR ---
PT STOOD UP WITH 2 PERSON ASSIST. PT NOTED TO HAVE SOME URINE LEAKING AROUND PURE WICK AND ATTENDS. PT CLEANED UP AND PROVIDED WITH DRY ATTENDS AND LINENS. MEPILEX REMOVED AND PT HAS REDNESS TO COCCYX AND SUPERFICIAL SKIN BREAKDOWN. NEW MEPILEX PLACED ON COCCYX. PT BACK TO CHAIR AND FAMILY BACK TO ROOM.
[2024-07-02 19:28] VITALS: BP 113/63
--- NOTE | 2024-07-03 04:09 | NUR ---
SHIFT SUMMARY TY WAS ALERT AND ORIENTED X2 ON ASSESMENT. PT PRESENT IN ROOM. PT DENIES PAIN AT REST. PT REPOSITIONED FREQUENTLY T/O NIGHT. 2L O2 IN PLACE FOR SLEEP. NO ACUTE EVENTS OR CHANGES TO PT CONDITION OVERNIGHT. PT RESTING IN RECLINER AT THIS TIME.
[2024-07-03 05:09] LABS: BASOPHILS ABSOLUTE AUTO 0.03 K/mm3 (0.00-0.23); BASOPHILS PERCENT AUTO 1 % (0-2); EOSINOPHILS ABSOLUTE AUTO 0.13 K/mm3 (0.00-0.68); EOSINOPHILS PERCENT AUTO 2 % (0-6); Hematocrit 31.7 % (33.0-51.0); IMMATURE GRAN ABSOLUTE AUTO 0.01 K/mm3 (0.00-0.10); IMMATURE GRAN PERCENT AUTO 0 % (0-1); LYMPHOCYTES ABSOLUTE AUTO 0.58 K/mm3 (0.84-5.20); LYMPHOCYTES PERCENT AUTO 11 % (21-46); MONOCYTES ABSOLUTE AUTO 0.57 K/mm3 (0.16-1.47); MONOCYTES PERCENT AUTO 11 % (4-13); Mean Corpuscular HGB 30.6 pg (26.0-34.0); Mean Corpuscular HGB Conc 31.5 g/dL (31.5-36.5); Mean Corpuscular Volume 97 fL (80-100); Mean Platelet Volume 10.3 fL (9.1-12.4); NEUTROPHILS ABSOLUTE AUTO 4.13 K/mm3 (1.96-9.15); NEUTROPHILS PERCENT AUTO 76 % (41-73); Platelet Count 84 K/mm3 (150-400); RDW Coefficient Variation 13.7 % (11.7-14.2); RDW Standard Deviation 49.2 fL (35.1-46.3); Red Blood Cell Count 3.27 M/mm3 (3.80-5.20); White Blood Cell Count 5.45 K/mm3 (4.00-11.30)
[2024-07-03 05:26] LABS: Bun/Creatinine Ratio 35.4 (12.0-20.0); Calcium, Blood 9.8 mg/dL (8.5-10.1); Creatinine, Blood 0.91 mg/dL (0.40-1.00); Potassium, Blood 4.8 mmol/L (3.5-5.5)
[2024-07-03 05:41] VITALS: BP 122/72
[2024-07-03 05:42] VITALS: BP 122/72
[2024-07-03 07:14] VITALS: BP 126/68
--- NOTE | 2024-07-03 11:00 | NUR ---
DURING AM ASSESSMENT PRESSURE INJURY WAS OBSERVED TO R BUTTOCK. PER PT'S THIS WOUND WAS PRESENT PRIOR TO ADMISSION. HE STATES THE OPEN ARE OF THE WOULD LOOKS UNCHANGED HOWEVER THE SKIN AROUND THE WOUND LOOKS MORE RED, SOME OF THIS REDDENED AREA IS BLANCHING AND SOME IS UNBLANCHING. CLEAN MEPILEX DRESSING PLACED. PT AND FAMILY EDUCATED ABOUT PRESSURE INJURY PREVENTION. SEPARATOR OPERATOR SHELLFISH MEATS MARIA NOTIFIED.
[2024-07-03] MEDS ORDERED: Apixaban 5 MG Tab PO SCH (11:30)
[2024-07-03 15:47] VITALS: BP 127/71
[2024-07-03 19:44] VITALS: BP 126/67
--- NOTE | 2024-07-03 19:47 | NUR ---
SHIFT SUMMARY PAIN HAS BEEN MANAGED WITH TYLENOL AND ROBAXIN THIS SHIFT; ICE HAS ALSO BEEN PROVIDED INTERMITTENTLY. PT IS PAINFUL WITH MOVEMENT DESPITE INTERVENTIONS. PT WORKED WITH PHYSICAL THERAPY TODAY, SHE IS A 2 MAX ASSIST FOR STAND PIVOT TRANSFERS. PT IS UNABLE TO MAINTAIN WEIGHT BEARING STATUS WHEN OOB. PT HAS BEEN ALERT/ORIENTED X2, SHE IS PLEASANT AND COOPERATIVE. PT'S HAS BEEN AT THE BEDSIDE T/O THE DAY AND HAS BEEN HELPFUL WITH HER CARE. PT HAS BEEN REPOSITIONED FREQUENTLY AND EDUCATION HAS BEEN PROVIDED TO PT AND HER FAMILY ABOUT PREVENTING PRESSURE INJURIRES. BEDSIDE REPORT GIVEN TO LING OSBORNE.
[2024-07-04 04:03] VITALS: BP 120/63
--- NOTE | 2024-07-04 04:10 | NUR ---
SHIFT SUMMARY VSS. PT HAS SLEPT WELL T/O THE NIGHT. PT REQURIED 2 MAX TO GET FROM HER RECLINER AND INTO THE BED. DAWNA UTILIZED T/O THE NIGHT D/T HOW DIFFICULT IT IS FOR THE PATIENT TO MAINTAIN WEIGHT BEARING STATUS. GOOD URINE OUTPUT NOTED, URINE APPEARED SLIGHTLY CLOUDY. NO FOUR ODOR NOTED THIS MORNING. PT HAS TOLLERATED INCREASING HER ORAL FLUIDS W/HUSBANDS ENCOURAGEMENT. THE PATIENT WAS MEDICATED FOR PAIN WITH TYLENOL, GOOD RESULTS NOTED. COLD THERAPY UTILIZED LONG THE PATIENT WOULD TOLLERATE. PATIENT REPOSITIONED Q2. PRESSURE WOUND NOTED ON BUTTOX, PATIENTS NOTED THAT THIS WAS PRESENT BEFORE ADMISSION. OVERALL, NO ACUTE EVENTS NOTED T/O THE NIGHT. PLAN TO CONTINUE PT AND D/C HOME W/ HH. THE PATIENT IS CURRENTLY SLEEPING, BED ALARM IN PLACE, CALL LIGHT IN REACH.
[2024-07-04] MEDS ORDERED: Rivaroxaban 10 MG Tab PO SCH (09:00)
--- NOTE | 2024-07-04 11:00 | NUR ---
DR. ROSAS ROUNDED SPOKE WITH DR. ROSAS REGARDING PRESSURE INJURY AND NEED FOR WOUND CARE ORDERS. PER DR. ROSAS PLACE MEDLINE OPTIFOAM BORDER DRESSING. IF SITE BECOMES MACERATED OK TO ALTERNATE DRESSING WITH BARRIER CREAM APPLICATION. PLAN TO USE PUREWICK AT NIGHT TO PREVENT MOISTURE AROUND WOUND SITE. DIETARY CONSULT WILL ALSO BE PLACED FOR WOUND HEALING.
--- NOTE | 2024-07-04 12:44 | NUR ---
MEDLINE OPTIFOAM DRESSING PLACED ON BUTTOCKS.
[2024-07-04 14:46] VITALS: BP 106/62
[2024-07-04 19:35] VITALS: BP 119/68
--- NOTE | 2024-07-04 20:03 | NUR ---
SHIFT SUMMARY PT REMAINS NON-SURGICAL. PAIN MANAGED WITH TYLENOL AND ROBAXIN THIS SHIFT. PT HAS BEEN REPOSITIONED FREQUENTLY T/O SHIFT, SHE AND HER FAMILY HAVE BEEN EDUCATED ABOUT PRESSURE INJURY AND PREVENTING WORSENING OF THE INJURY. PT WAS DROWSY THIS MORNING AND SLEPT UNTIL APPROXIMATELY NOON EXCEPT WHEN SHE WOKE UP FOR MEDICATIONS AND BREAKFAST. AT NOON SHE WAS ASSISTED OOB TO THE CHAIR FOR LUNCH. WHILE IN THE CHAIR PILLOWS ARE PLACED UNDER HER HIPS AND PT SHIFTED FROM SIDE TO SIDE. SHE WAS ALSO ASSISTED TO RECLINE IN HER CHAIR TO CHANGE HER POSITION T/O THE DAY. PT IS A 2 MAX ASSIST WHEN OOB TO THE [facility]. PT IS UNABLE TO MAINTAIN WEIGHT BEARING STATUS WHEN UP, SHE IS ONLY ABLE TO STAND AND PIVOT TRANSFER. PER PT'S SHE AT APPROXIMATELY 50% OF ALL MEALS AND DRANK AN ENSURE WITH EACH MEAL. DR. ROSAS PLACED DIETARY CONSULT ORDER FOR WOUND HEALING. PRESSURE PREVENTION DRESSING APPLIED TO BUTTOCKS OVER PRESSURE INJURY SITE. BEDSIDE REPORT GIVEN TO LING RN, PT AND HER PARTICIPATED IN BEDSIDE REPORT. BRITANY (S/O) HAS BEEN AT THE BEDSIDE T/O THE DAY, HE IS HELPFUL WITH PATIENT CARE AND ASSISTS PT TO CALL WHEN NEEDED. PT IS ON A CHAIR ALARM WITH OOB AND BED ALARM WHEN IN BED.
[2024-07-05 03:20] VITALS: BP 120/65
--- NOTE | 2024-07-05 04:18 | NUR ---
SHIFT SUMMARY VSS. PT HAS SLEPT WELL T/O THE NIGHT. THE PATIENT SLEPT IN A RECLINER T/O THE NIGHT AND WAS REPOSITIONED Q2 FOR PRESSURE ULCER PREVENTION. LOW PO INTAKE NOTED, ORAL FLUIDS ENCOURAGED BUT THE PATIENT HAS SLEPT MOST OF THE SHIFT. PUREWICK UTILIZED T/O THE NIGHT ALONG W/TRANSFERRING TO THE [facility] [place]. PT VOIDING W/O DIFFICULTY. DARK URINE NOTED. THE PATIENT WAS MEDICATED FOR PAIN ONCE WITH TYLENOL. NO ACUTE EVENTS NOTED T/O THE NIGHT. PLAN FOR PT TO HAVE ONGOING PHYSICAL THERAPY AND AWAIT DISCHARGE PLANNING
[2024-07-05 07:12] VITALS: BP 112/65
--- NOTE | 2024-07-05 09:45 | NUR ---
MORNING NOTE ASSUMED CARE AT APPROX 0715. PATIENT SLEEPING IN CHAIR - EASILY AROUSABLE WITH VERBAL STIMULI. VSS. ON BASELINE 3L VIA NC. ALERT AND ORIENTED TO SELF AND ONLY - HX OF ADVANCED ALZHEIMER. PLEASANT, COOPERATIVE WITH CARE. DENIES PAIN AT THIS TIME. ENCOURAGING INCREASED PO INTAKE - AT BEDSIDE ASSISTING WITH CARE. UP TO BSC THIS MORNING TO VOID - DIFFICULTY MAINTAINING TOE TOUCH WEIGHT BEARING STATUS LLE. 2P MAX ASSIST FWW. INCONTINENT AT TIMES - CHANGING ATTENDS PRN. DRESSING TO PRESSURE INJURY ON COCCYX CHANGED - APPEARS TO BE HEALING WELL. CALL LIGHT IN REACH. CHAIR ALARM ON.
[2024-07-05] MEDS ORDERED: OXYC5 PO (13:33)
--- NOTE | 2024-07-05 14:30 | NUR ---
DISCHARGE NOTE NO ACUTE CHANGES SINCE PREVIOUS NOTES. PATIENT REMAINS ALERT AND ORIENTED TO SELF AND FAMILY. VSS. TOLERATES ROOM AIR WHILE AWAKE, USES 3L VIA NC WITH SLEEP AT BASELINE. WORKED WITH PHYSICAL THERAPY THIS MORNING - PATIENT AMBULATING WITH 2P ASSIST FWW GB. PATIENT ABLE TO FOLLOW TOE TOUCH WEIGHT BEARING STATUS AT TIMES. AT BEDSIDE - RECEPTIVE TO EDUCATION, PARTICIPATING IN CARE. PAIN MANAGED WITH PRESCRIBED THERAPY. DC HOME WITH HOME HEALTH ORDERED. BOTH PATIENT AND HER AGREEABLE TO DC. EDUCATION PROVIDED REGARDING WOUND CARE - MEPIPLEX DRESSINGS AND BARRIER CREAM PROVIDED. PATIENT's DEMONSTRATED ABILITY TO TRANSFER PATIENT FROM BEDSIDE COMMODE TO RECLINER CHAIR MULTIPLE TIMES - COMFORTABLE WITH ACTIVITY. GAIT BELTS PROVIDED FOR USE AT HOME. PATIENT's STATES THAT HE HAS MULTIPLE FAMILY MEMBERS ABLE TO ASSIST WITH CARE AT HOME. PATIENT VOIDING. X1 BM PRIOR TO DC. HARD SCRIPT PROVIDED FOR NARCOTIC PRESCRIPTION. PATIENT TRANSFERRED TO PERSONAL VEHICLE VIA WHEELCHAIR AT APPROX 1420. PERSONAL BELONGINGS WITH PATIENTs .
== END 2024-07-05 14:22 | disposition home health service (06) | DRG 536 ==
LOC: ER 14:39 → SURS 18:23 → MEDS 18:23 → SURS 20:32
PROVIDERS: Emergency Medicine; Internal Medicine; ADMIT Family Medicine
DX: S72.142A Displaced intertrochanteric fracture of left femur, initial encounter for closed fracture (principal); M97.02XA Periprosthetic fracture around internal prosthetic left hip joint, initial encounter; J96.11 Chronic respiratory failure with hypoxia; Z66 Do not resuscitate; L89.312 Pressure ulcer of right buttock, stage 2; G30.9 Alzheimer's disease, unspecified; F06.70 Mild neurocognitive disorder due to known physiological condition without behavioral disturbance; J44.9 Chronic obstructive pulmonary disease, unspecified; I73.9 Peripheral vascular disease, unspecified; I10 Essential (primary) hypertension; E89.0 Postprocedural hypothyroidism; Z85.820 Personal history of malignant melanoma of skin; Z85.3 Personal history of malignant neoplasm of breast; Z96.643 Presence of artificial hip joint, bilateral; Z90.710 Acquired absence of both cervix and uterus; Z95.5 Presence of coronary angioplasty implant and graft; Z90.49 Acquired absence of other specified parts of digestive tract; Z87.891 Personal history of nicotine dependence; Z98.890 Other specified postprocedural states; Z88.8 Allergy status to other drugs, medicaments and biological substances; W18.30XA Fall on same level, unspecified, initial encounter; Y92.511 Restaurant or cafe as the place of occurrence of the external cause
CPT/HCPCS: 36415; 72192; 73502; 80048; 80053; 80069; 83735; 85025; 85027; 93005; 93010; 94760; 94762; 96374; 96375; 97110; 97162; 97530; 99285-25; A9270; J2270; J2405; J7030; J7120

== ENCOUNTER → 2024-07-14 | Outpatient (CLI) | payer MEDICARE, OTHER ==
[~2024-07-14] MED LIST changes: +DONEPEZIL HCL10 M1 PO; +MIRALAX17 GM PO; +OXYC5 PO
[2024-07-14 17:25] LABS: Source, Urine Clean Catch
[2024-07-14 17:30] LABS: Appearance, Urine Clear (Clear); Bilirubin, Urine Neg (Neg); Blood, Urine 1+ (Neg); Color, Urine Yellow (P-Yellow); Glucose Qualitative, Urine Neg (Neg); Ketones, Urine Neg (Neg); Leukocyte Esterase, Urine Neg (Neg); Nitrite, Urine Neg (Neg); Protein, Urine 1+ (Neg); Urobilinogen, Urine NORM (Normal)
[2024-07-14 17:45] LABS: Amorphous Light (0-Heavy); Bacteria Few /hpf; Mucus Light (0-Heavy); Squamous Epithelial Cells Rare /hpf (Few); White Blood Cells, Urine 0-2 /hpf (0-5)
== END ==
LOC: LAB SHORT 14:35 → LAB 14:35
PROVIDERS: Physician Assistant
DX: R39.9 Unspecified symptoms and signs involving the genitourinary system (principal)
CPT/HCPCS: 81001; 87086

== ENCOUNTER 2024-10-28 15:48 | Emergency (ER) | payer MEDICARE, OTHER ==
[~2024-10-28] VITALS: Ht 152.4 cm; Wt 47.6 kg
[2024-10-28 16:52] LABS: BASOPHILS ABSOLUTE AUTO 0.05 K/mm3 (0.00-0.23); BASOPHILS PERCENT AUTO 1 % (0-2); EOSINOPHILS ABSOLUTE AUTO 0.16 K/mm3 (0.00-0.68); EOSINOPHILS PERCENT AUTO 2 % (0-6); Hematocrit 41.6 % (33.0-51.0); Hemoglobin 13.2 g/dL (11.5-16.0); IMMATURE GRAN ABSOLUTE AUTO 0.02 K/mm3 (0.00-0.10); IMMATURE GRAN PERCENT AUTO 0 % (0-1); LYMPHOCYTES PERCENT AUTO 13 % (21-46); MONOCYTES ABSOLUTE AUTO 0.57 K/mm3 (0.16-1.47); MONOCYTES PERCENT AUTO 8 % (4-13); Mean Corpuscular HGB 29.7 pg (26.0-34.0); Mean Corpuscular HGB Conc 31.7 g/dL (31.5-36.5); Mean Corpuscular Volume 94 fL (80-100); NEUTROPHILS ABSOLUTE AUTO 5.37 K/mm3 (1.96-9.15); NEUTROPHILS PERCENT AUTO 76 % (41-73); Platelet Count 168 K/mm3 (150-400); RDW Coefficient Variation 13.8 % (11.7-14.2); Red Blood Cell Count 4.45 M/mm3 (3.80-5.20); White Blood Cell Count 7.07 K/mm3 (4.00-11.30)
[2024-10-28 17:45] LABS: Albumin, Blood 3.8 g/dL (3.4-5.0); Albumin/Globulin Ratio 1.2 (0.8-1.8); Bilirubin, Total 0.4 mg/dL (0.1-1.0); Calcium, Blood 9.4 mg/dL (8.5-10.1); Creatinine, Blood 0.89 mg/dL (0.40-1.00); Globulin, Blood 3.3 g/dL (2.2-4.0); Potassium, Blood 3.9 mmol/L (3.5-5.5); Total Protein, Blood 7.1 g/dL (6.4-8.2)
[2024-10-28 19:45] VITALS: BP 107/63
== END 2024-10-28 20:09 | disposition home or self-care (01) ==
LOC: ER 15:48
PROVIDERS: Emergency Medicine
DX: R07.9 Chest pain, unspecified (principal); I10 Essential (primary) hypertension; J44.9 Chronic obstructive pulmonary disease, unspecified; Z88.8 Allergy status to other drugs, medicaments and biological substances; Z79.82 Long term (current) use of aspirin; Z79.899 Other long term (current) drug therapy; Z87.891 Personal history of nicotine dependence
CPT/HCPCS: 71046; 80053; 84484; 85025; 93005; 93010; 99284-25